=== PATIENT | female | born 1960 | race Caucasian/White ===

== ENCOUNTER → 2017-08-09 | Outpatient (CLI) | payer MEDICAID ==
[2017-08-09 10:19] LABS: Basophils % (A) 0 %; CH 27.9; Eosinophils # (A) 0.2 k/uL (0-0.7); Eosinophils % (A) 2 %; HCT 39.3 % (34.0-46.0); HDW 2.71; HGB 12.6 gm/dL (11.4-16.0); Luc # (Auto) 0.23; Luc % (Auto) 2; Lymphocytes # (A) 2.7 k/uL (1.0-4.8); Lymphocytes % (A) 23 %; MCHC 32.1 g/dL (31.0-37.0); MCV 87.3 fL (80.0-100.0); Monocytes # (A) 0.6 k/uL (0-1.0); Monocytes % (A) 5 %; Neutrophils # (A) 7.7 k/uL (1.3-7.7); Neutrophils % (A) 68 %; RDW 13.7 % (11.5-15.5); WBC 11.4 k/uL (3.8-10.6); WBC (Perox) 11.75
[2017-08-09 13:28] LABS: ALT 38 U/L (9-52); AST 21 U/L (14-36); Alkaline Phosphatase 122 U/L (38-126); Anion Gap 12 mmol/L; Blood Urea Nitrogen 10 mg/dL (7-17); Calcium 9.4 mg/dL (8.4-10.2); Carbon Dioxide 24 mmol/L (22-30); Chloride 102 mmol/L (98-107); Cholesterol 184 mg/dL (<200); Glucose 119 mg/dL (74-99); HDL Cholesterol 49 mg/dL (40-60); Non-African American GFR(MDRD) >60 (>60 ml/min/1.73 sqM); Potassium 4.2 mmol/L (3.5-5.1); Sodium 138 mmol/L (137-145); Total Bilirubin 0.4 mg/dL (0.2-1.3); Total Protein 7.1 g/dL (6.3-8.2)
[2017-08-09 13:31] LABS: Rheumatoid Factor, Qnt <9 IU/mL (<12)
== END | disposition home or self-care (01) ==
LOC: LABWHC1 09:52
PROVIDERS: ATTEND Internal Medicine
DX: Z00.00 Encounter for general adult medical examination without abnormal findings (principal); E78.5 Hyperlipidemia, unspecified
CPT/HCPCS: 36415; 80053; 80061; 84439; 84443; 85025; 86431

== ENCOUNTER → 2017-08-19 | Outpatient (CLI) | payer MEDICAID ==
--- NOTE | 2017-08-19 15:57 | US ---
EXAMINATION TYPE: US thyroid st tissue head/neck DATE OF EXAM: 08/19/2017 COMPARISON: US 08/13 CLINICAL HISTORY: E04.1 NODULE. follow up on known nodules, prior biopsy GLAND SIZE: Right Lobe: 4.9 x 1.5 x 2.0 cm. Previous measurement 5.1 x 1.6 x 1.8 cm. Overall Parenchyma: homogenous Left Lobe: 4.9 x 1.9 x 1.6 cm. Previous measurement 5.5 x 1.6 x 1.7 cm. Overall Parenchyma: diffusely heterogeneous Isthmus Thickness: 0.6 cm. Previous measurement 0.5 cm. NODULES RIGHT: # of nodules measured on right: 2 1. 0.6 x 0.3 x 0.5 cm hypoechoic solid appearing nodule at the lower pole with poorly defined margin s. This nodule is wider than tall and shows intranodular vascularity. Prior size: 0.5 x 0.3 x 0.4 cm 2. 0.4 cm cystic nodule at the mid to upper pole with well-defined margins. This nodule is wider th an tall and shows no intranodular vascularity. Prior size: not seen on prior scan. LEFT: # of nodules measured on left: 1 1. 0.6 X 0.8 x 0.8 cm heterogeneous mixed nodule at the posterior pole with mid to lower margins. This nodule is taller than wide and shows no intranodular vascularity. Prior size: 0.8 x 0.8 x 1.2 cm 2. Left lobe has a diffusely heterogeneous echo pattern. ISTHMUS: # of nodules measured in the isthmus: 0 Bilateral neck scanned, no evidence of lymphadenopathy. IMPRESSION: 1. Stable multinodular thyroid 2. Subcentimeter nodule inferior left lobe thyroid warrants monitoring.
--- NOTE | 2017-08-19 16:06 | US ---
EXAMINATION TYPE: US abdomen complete DATE OF EXAM: 08/19/2017 COMPARISON: NONE CLINICAL HISTORY: R10.84 ABD PAIN. Epigastric pain, worse after eating EXAM MEASUREMENTS: Liver Length: 19.6 cm Gallbladder Wall: 0.2 cm CBD: 0.5 cm Spleen: 11.6 cm Right Kidney: 10.2 x 4.6 x 5.1 cm Left Kidney: 10.9 x 5.7 x 7.0 cm Pancreas: tail gassed out otherwise wnl Liver: hepatomegaly, attenuating Gallbladder: wnl Evidence for sonographic Bingham's sign: no CBD: wnl Spleen: wnl Right Kidney: wnl Left Kidney: wnl Upper IVC: wnl Abd Aorta: wnl IMPRESSION: 1. Visualized portions of the abdominal ultrasound or unremarkable. Bowel gas limits portions of the evaluation 2. Mild to moderate fatty infiltration liver. Thyromegaly is present measuring 19.6 cm.
--- NOTE | 2017-08-20 09:37 | MM ---
Reason for exam: screening (asymptomatic). Last mammogram was performed 2 years and 7 months ago. History: Patient is postmenopausal. Took progesterone for 5 years beginning at age 27. Took unspecified hormones for 4 years beginning at age 27. Physical Findings: A clinical breast exam by your physician is recommended on an annual basis and results should be correlated with mammographic findings. MG 3D Screening Mammo W/Cad Bilateral CC and MLO view(s) were taken. CV view(s) were taken of the left breast. Prior study comparison: January 17, 2015, bilateral MG screening mammo w CAD. October 20, 2013, bilateral digital screening mammo w/CAD. There are scattered fibroglandular densities. Stable asymmetric density anterior central left breast. No significant changes when compared with prior studies. ASSESSMENT: Negative, BI-RAD 1 RECOMMENDATION: Routine screening mammogram of both breasts in 1 year.
== END | disposition home or self-care (01) ==
LOC: RADUSWWP 08:43
PROVIDERS: ATTEND Internal Medicine
DX: Z12.31 Encounter for screening mammogram for malignant neoplasm of breast (principal); K76.0 Fatty (change of) liver, not elsewhere classified; E04.2 Nontoxic multinodular goiter
CPT/HCPCS: 77063; 76700; 76536; G0202

== ENCOUNTER → 2019-05-23 | Outpatient (CLI) | payer MEDICAID ==
--- NOTE | 2019-05-23 09:54 | XR ---
EXAMINATION TYPE: XR foot complete LT DATE OF EXAM: 05/23/2019 COMPARISON: NONE HISTORY: 58-year-old female left foot pain after rolling injury TECHNIQUE: 3 views FINDINGS: There is a transverse fracture through the midshaft of the fifth proximal phalanx with minimal, 1 mm of offset. Adjacent soft tissue swelling. No additional acute fracture or dislocation is seen. There is mild hallux valgus deformity with bunion formation. Mild degenerative change at the first MT P joint. More moderate degenerative change at the first TMT joint with adjacent 3 mm fragmented spur versus loose body. Tiny type I accessory navicular. Additional degenerative spurring anteriorly and m edially at the tibiotalar joint. Plantar calcaneal spur. IMPRESSION: Transverse fracture through the mid shaft of the fifth proximal phalanx with minimal, 1 mm of offset. Associated soft tissue swelling.
== END | disposition home or self-care (01) ==
LOC: RADXRMAIN 08:51
PROVIDERS: ATTEND Radiology Diagnostic Radiology
DX: S92.512A Displaced fracture of proximal phalanx of left lesser toe(s), initial encounter for closed fracture (principal); M79.89 Other specified soft tissue disorders

== ENCOUNTER → 2020-01-15 | Outpatient (CLI) | payer MEDICAID | END | disposition home or self-care (01) | DX: Z00.00 Encounter for general adult medical examination without abnormal findings (principal) | CPT/HCPCS: 36415; 80053; 80061; 84439; 84443; 84550; 85025; 86431 ==

== ENCOUNTER → 2020-06-19 | Outpatient (CLI) | payer MEDICAID | END | disposition home or self-care (01) | LOC: LABWHC1 13:31 | PROVIDERS: ATTEND Internal Medicine | DX: Z20.828 Contact with and (suspected) exposure to other viral communicable diseases (principal) | CPT/HCPCS: U0003; C9803 ==

== ENCOUNTER → 2020-08-23 | Outpatient (CLI) | payer MEDICAID ==
--- NOTE | 2020-08-26 12:03 | MM ---
Reason for exam: screening (asymptomatic). Last mammogram was performed 3 years ago. History: Patient is postmenopausal. Took progesterone for 5 years beginning at age 27. Took unspecified hormones for 4 years beginning at age 27. Physical Findings: A clinical breast exam by your physician is recommended on an annual basis and results should be correlated with mammographic findings. MG 3D Screening Mammo W/Cad Bilateral CC and MLO view(s) were taken. Prior study comparison: August 19, 2017, bilateral MG 3d screening mammo w/cad. January 17, 2015, bilateral MG screening mammo w CAD. There are scattered fibroglandular densities. There is chronic nodularity in the left breast. No significant changes when compared with prior studies. ASSESSMENT: Negative, BI-RAD 1 RECOMMENDATION: Routine screening mammogram of both breasts in 1 year.
== END | disposition home or self-care (01) ==
LOC: RADMAMWWP 10:46
PROVIDERS: ATTEND Internal Medicine
DX: Z12.31 Encounter for screening mammogram for malignant neoplasm of breast (principal)
CPT/HCPCS: 77063; 77067

== ENCOUNTER 2020-09-23 06:55 | Emergency (ER) | payer MEDICAID ==
[2020-09-23 07:03] VITALS: PULSE 81; TEMP 98.8
[2020-09-23] MEDS ORDERED: GABAPENTIN 300 MG CAP PO STA (07:10)
[2020-09-23] MEDS ORDERED: KETOROLAC 15 MG/ML 1 ML VIAL IM STA (07:11)
[2020-09-23] MEDS ORDERED: HYDROmorphone 0.5 MG/0.5 ML SYRINGE IM STA (07:19)
--- NOTE | 2020-09-23 07:31 | ED ---
Neck Injury/Pain HPI - General Chief Complaint: Neck Pain/Injury Stated Complaint: Neck/Arm Pain Time Seen by Provider: 09/23/20 07:04 Mode of arrival: ambulatory Limitations: no limitations - History of Present Illness Initial Comments: 59-year-old feel presenting today for chief complaint of burning right arm pain. pt states that she has bulging discs and a bad neck. she states she has been struggling wtih this for quite some time and sees Dr. Marly Don. She states she had an MRI in July. Admits to chronic mild weakness of the right arm and sensation deficits of the pink side of hand. States feels different than rest of extremity. These are not new symptoms. Pt states that the weakness and sensation has not changed but over the weekend the burning and pain increased and keeping her arm elevated is the only position that is comfortable. pt tried to go to work today and could not because of the pain and thus presented to the ER. Patient has no additional complaints. Denies chest pain, SOB, nausea, vomiting, jaw pain. - Related Data Home Medications Medication Instructions Recorded Confirmed Fluticasone/Salmeterol [Advair 1 puff INHALATION RT-DAILY 11/27/14 09/23/20 250-50 Diskus] Montelukast [Singulair] 10 mg PO HS 11/27/14 09/23/20 Acetaminophen Tab [Tylenol Tab] 500 - 1,000 mg PO Q6H PRN 02/19/16 09/23/20 DULoxetine HCL [Cymbalta] 60 mg PO HS 08/24/17 09/23/20 Losartan/Hydrochlorothiazide 2 tab PO DAILY 10/06/17 09/23/20 [Losartan-Hctz 50-12.5 mg Tab] ALPRAZolam [Xanax] 0.5 mg PO DAILY PRN 09/23/20 09/23/20 Albuterol Inhaler [Ventolin Hfa 2 puff INHALATION RT-Q4H PRN 09/23/20 09/23/20 Inhaler] Albuterol Nebulized [Ventolin 2.5 mg INHALATION RT-TID 09/23/20 09/23/20 Nebulized] Cyclobenzaprine [Flexeril] 10 mg PO BID PRN 09/23/20 09/23/20 HYDROcodone/APAP 7.5-325MG [[place] 1 tab PO BID PRN 09/23/20 09/23/20 7.5-325] Previous Rx's Medication Instructions Recorded predniSONE 50 mg PO DAILY 5 Days #5 tablet 09/23/20 Allergies Allergy/AdvReac Type Severity Reaction Status Date / Time adhesive Allergy blisters Verified 09/23/20 08:33 codeine Allergy throat Verified 09/23/20 08:33 swelling and redness erythromycin base Allergy Unknown Verified 09/23/20 08:33 Childhood latex Allergy red, Verified 09/23/20 08:33 irritated skin tetracycline Allergy Unknown Verified 09/23/20 08:33 Childhood Review of Systems ROS Statement: Those systems with pertinent positive or pertinent negative responses have been documented in the HPI. ROS Other: All systems not noted in ROS Statement are negative. Past Medical History Past Medical History: Asthma, Fibromyalgia, Osteoarthritis (OA), Skin Disorder Additional Past Medical History / Comment(s): "borderline BP problem", IBS, psoriasis, thyroid nodule, History of Any Multi-Drug Resistant Organisms: None Reported Past Surgical History: Section, Joint Replacement, Orthopedic Surgery Additional Past Surgical History / Comment(s): chaim knee replacement, mass removed from rt shoulder, left TMJ surgery, surgery left index finger, Past Anesthesia/Blood Transfusion Reactions: Postoperative Nausea & Vomiting (PONV) Additional Past Anesthesia/Blood Transfusion Reaction / Comment(s): "gagging for 40 minutes post op" Past Psychological History: Anxiety Smoking Status: Never smoker Past Alcohol Use History: Rare Past Drug Use History: None Reported - Past Family History Mother Family Medical History: No Reported History Father Family Medical History: COPD General Exam - General Exam Comments Initial Comments: General: The patient is awake and alert, in no distress Eye: +3 mm pupils are equal, round and reactive to light, extra-ocular movements are intact. No nystagmus. There is normal conjunctiva bilaterally. No signs of icterus. Ears, nose, mouth and throat: There are moist mucous membranes and no oral lesions. Neck: The neck is supple, there is no tenderness or JVD. No midline neck pain. + spurlings. Cardiovascular: There is a regular rate and rhythm. No murmur, rub or gallop is appreciated. Respiratory: Lungs are clear to auscultation, respirations are non-labored, breath sounds are equal. No wheezes, stridor, rales, or rhonchi. Gastrointestinal: Soft, non-distended, non-tender abdomen without masses or organomegaly noted. There is no rebound or guarding present. Musculoskeletal: Normal ROM, no tenderness. Strength 5/5 of the UE b/l. Sensation intact of the UE b/l slightly less however on ulnar aspect of the right hand. Radial pulses equal bilaterally 2+. Neurological: A&O x 3. CN II-XII intact grossly, There are no obvious motor or sensory deficits. Coordination appears grossly intact. Speech is normal. Skin: Skin is warm and dry and no rashes or lesions are noted. Psychiatric: Cooperative, appropriate mood & affect, normal judgment. Limitations: no limitations Course Vital Signs 09/23/20 09/23/20 06:56 09:01 Temperature 98.8 F Pulse Rate 81 81 Respiratory 20 18 Rate Blood Pressure 216/81 167/81 O2 Sat by Pulse 96 95 Oximetry Medical Decision Making - Medical Decision Making 59yo female presenting for cc of right arm pain. hx of foraminal stenosis/cervical disc herniations. Patient has what appears to be most consistent wtih radicular pain states burning pain down arm from neck. same characteristics as chronic pain just intensified. Patient neurologist consulted, I spoke with Dr. Painter who recommend initiating solumedrol 500mg IV daily x 3 days, he statse that she can get initial infusion in the ER and the others can be given in office the next 2 days. He states he will attempt to move up epidural appointment. Patient agreeable to this care plan and states she is going to his office directly after the ER to schedule addition solumedrol infusions. Patient pain did decrease, appears mroe comfortable, BP improved. Discussed case wtih Dr. Enamorado who is agreeable to care plan and discharge. Prior to patient being discharge Flore[facility] QUINONEZ called, stating patient will not be able to get additional infusions and to discharge pateint on 50mg PO prednisone for 5 days and they will see the patient in office. Disposition Clinical Impression: Right arm pain, Radiculopathy Disposition: HOME SELF-CARE Condition: Good Instructions (If sedation given, give patient instructions): Cervical Radiculopathy (ED) Additional Instructions: Please use medication as discussed. Please follow-up with Dr. Painter as discussed. Please return to emergency room if the symptoms increase or worsen or for any other concerns. Prescriptions: predniSONE 50 mg PO DAILY 5 Days #5 tablet Is patient prescribed a controlled substance at d/c from ED?: No Referrals: Abrahan Marie MD [Primary Care Provider] - 1-2 days Time of Disposition: 09:33
[2020-09-23] MEDS ORDERED: predniSONE 50 MG TAB PO STA (08:16)
[2020-09-23] MEDS ORDERED: HYDROmorphone 0.5 MG/0.5 ML SYRINGE IVP STA (08:56)
[2020-09-23 09:03] VITALS: BP 167/81; RESP 18
== END 2020-09-23 10:13 | disposition home or self-care (01) ==
LOC: EC 06:55
DX: M54.12 Radiculopathy, cervical region (principal); F41.9 Anxiety disorder, unspecified; J45.909 Unspecified asthma, uncomplicated; M79.7 Fibromyalgia; Z79.51 Long term (current) use of inhaled steroids; Z79.899 Other long term (current) drug therapy; Z96.653 Presence of artificial knee joint, bilateral; Z88.1 Allergy status to other antibiotic agents; Z88.5 Allergy status to narcotic agent; Z91.040 Latex allergy status; Z91.048 Other nonmedicinal substance allergy status
CPT/HCPCS: 99283; 96365; 96375; 96372 ×2; J2930; J1885; J1170

== ENCOUNTER 2021-09-01 13:53 | Emergency (ER) | payer MEDICAID ==
[2021-09-01 15:13] VITALS: BP 158/90; PULSE 101; RESP 18; TEMP 97.6
[2021-09-01] MEDS ORDERED: HYDROmorphone 0.5 MG/0.5 ML SYRINGE IM STA (16:43)
--- NOTE | 2021-09-01 16:43 | ED ---
Back Pain HPI - General Chief Complaint: Back Pain/Injury Stated Complaint: Back Pain, I.H.S. Time Seen by Provider: 09/01/21 16:17 Source: patient, RN notes reviewed, old records reviewed Mode of arrival: ambulatory Limitations: no limitations - History of Present Illness Initial Comments: Patient is a 60-year-old female presenting to the emergency department after injuring her back at work today. Patient works here at the hospital, she was helping to lift a patient of that, this patient is obese, there was other people helping her lower patient fell forward into her and patient tried to brace herself with her back and her legs. She did not fall down. She does have history of chronic low back pain which has been well managed at home. Patient states she is having pain in the left side of her back and also shooting down the back of her leg. She has history of sciatica as well and this feels exactly like that. Patient did take a muscle relaxer and [place] prior to coming to the ER, she states she does not feel like it worked. She denies any numbness and tingling, no bowel or bladder incontinence. She states she just really wants to go home and rest. Patient has no further complaints. - Related Data Home Medications Medication Instructions Recorded Confirmed Fluticasone/Salmeterol [Advair 1 puff INHALATION RT-DAILY 11/27/14 09/23/20 250-50 Diskus] Montelukast [Singulair] 10 mg PO HS 11/27/14 09/23/20 Acetaminophen Tab [Tylenol Tab] 500 - 1,000 mg PO Q6H PRN 02/19/16 09/23/20 DULoxetine HCL [Cymbalta] 60 mg PO HS 08/24/17 09/23/20 Losartan/Hydrochlorothiazide 2 tab PO DAILY 10/06/17 09/23/20 [Losartan-Hctz 50-12.5 mg Tab] ALPRAZolam [Xanax] 0.5 mg PO DAILY PRN 09/23/20 09/23/20 Albuterol Inhaler [Ventolin Hfa 2 puff INHALATION RT-Q4H PRN 09/23/20 09/23/20 Inhaler] Albuterol Nebulized [Ventolin 2.5 mg INHALATION RT-TID 09/23/20 09/23/20 Nebulized] Cyclobenzaprine [Flexeril] 10 mg PO BID PRN 09/23/20 09/23/20 HYDROcodone/APAP 7.5-325MG [[place] 1 tab PO BID PRN 09/23/20 09/23/20 7.5-325] Previous Rx's Medication Instructions Recorded Gabapentin 300 mg PO BID 3 Days #6 cap 09/23/20 predniSONE 50 mg PO DAILY 5 Days #5 tablet 09/23/20 Gabapentin 300 mg PO BID 4 Days #8 cap 09/27/20 predniSONE 10 mg PO DIRECTED 9 Days #18 tab 09/27/20 Allergies Allergy/AdvReac Type Severity Reaction Status Date / Time adhesive Allergy blisters Verified 09/01/21 15:13 codeine Allergy throat Verified 09/01/21 15:13 swelling and redness erythromycin base Allergy Unknown Verified 09/01/21 15:13 Childhood latex Allergy red, Verified 09/01/21 15:13 irritated skin tetracycline Allergy Unknown Verified 09/01/21 15:13 Childhood Review of Systems ROS Statement: Those systems with pertinent positive or pertinent negative responses have been documented in the HPI. ROS Other: All systems not noted in ROS Statement are negative. Past Medical History Past Medical History: Asthma, Diabetes Mellitus, Fibromyalgia, Osteoarthritis (OA), Skin Disorder Additional Past Medical History / Comment(s): "borderline BP problem", IBS, psoriasis, thyroid nodule, History of Any Multi-Drug Resistant Organisms: None Reported Past Surgical History: Section, Joint Replacement, Orthopedic Surgery Additional Past Surgical History / Comment(s): chaim knee replacement, mass removed from rt shoulder, left TMJ surgery, surgery left index finger, Past Anesthesia/Blood Transfusion Reactions: Postoperative Nausea & Vomiting (PONV) Additional Past Anesthesia/Blood Transfusion Reaction / Comment(s): "gagging for 40 minutes post op" Past Psychological History: Anxiety Smoking Status: Never smoker Past Alcohol Use History: Rare Past Drug Use History: None Reported - Past Family History Mother Family Medical History: No Reported History Father Family Medical History: COPD General Exam - General Exam Comments Initial Comments: GENERAL: Patient is well-developed and well-nourished. Patient is nontoxic and in mild distress. HEAD: Atraumatic, normocephalic. EYES: Pupils equal round and reactive to light, extraocular movements intact, sclera anicteric, conjunctiva are normal. Eyelids were unremarkable. ENT: Oropharynx clear without exudates. Moist mucous membranes. NECK: Normal range of motion, supple without lymphadenopathy or JVD. LUNGS: Unlabored respirations. Breath sounds clear to auscultation bilaterally and equal. No wheezes rales or rhonchi. HEART: Regular rate and rhythm without murmurs, rubs or gallops. MUSCULOSKELETAL: Patient has pain in the left low back, left sciatica region. Normal extremities with adequate strength and normal range of motion, no pitting or edema. No clubbing or cyanosis. NEUROLOGICAL: Patient is alert and oriented x 3. SKIN: Warm, Dry, normal turgor, no rashes or lesions noted. Limitations: no limitations Course Vital Signs 09/01/21 15:08 Temperature 97.6 F Pulse Rate 101 H Respiratory 18 Rate Blood Pressure 158/90 O2 Sat by Pulse 98 Oximetry Medical Decision Making - Medical Decision Making Patient is a 60-year-old female here with an injury to her low back after a patient fell into her. She is experiencing left low back and left sciatica symptoms. She has had this in the past and it feels similar. She has no alarming symptoms and exam. Patient be given any pain medicine here today and is requesting to go home and rest. She will use hot packs to the area, gentle massage. She will follow back up with her doctor. She is agreeable to this plan of care and she is stable for discharge. Disposition Clinical Impression: Strain of lumbar region, Sciatica Disposition: HOME SELF-CARE Condition: Stable Instructions (If sedation given, give patient instructions): Sciatica (ED) Additional Instructions: Please return to the Emergency Department if symptoms worsen or any other concerns. Continue with your already prescribed medications. Use heat and/or ice to the area, gentle stretching and massage. Follow-up with your doctor as needed. Is patient prescribed a controlled substance at d/c from ED?: No Referrals: Krista Gonsalez MD [Primary Care Provider] - 1-2 days Time of Disposition: 16:42
== END 2021-09-01 16:52 | disposition home or self-care (01) ==
LOC: EC 13:53
DX: S39.012A Strain of muscle, fascia and tendon of lower back, initial encounter (principal); M54.42 Lumbago with sciatica, left side; E11.9 Type 2 diabetes mellitus without complications; J45.909 Unspecified asthma, uncomplicated; M79.7 Fibromyalgia; Z91.09 Other allergy status, other than to drugs and biological substances; Z88.5 Allergy status to narcotic agent; Z88.1 Allergy status to other antibiotic agents; Z91.040 Latex allergy status; Z79.51 Long term (current) use of inhaled steroids; Z79.899 Other long term (current) drug therapy
CPT/HCPCS: 99283; 96372; J1170

== ENCOUNTER → 2021-09-22 | Outpatient (CLI) | payer MEDICAID, OTHER | END | disposition home or self-care (01) | LOC: LABWHC1 09:45 | PROVIDERS: ATTEND Emergency Medicine | DX: Z20.822 Contact with and (suspected) exposure to COVID-19 (principal) | CPT/HCPCS: 87635 ==

== ENCOUNTER → 2021-09-23 | Outpatient (CLI) | payer MEDICAID, OTHER | END | disposition home or self-care (01) | LOC: LABWHC1 09:42 | PROVIDERS: ATTEND Emergency Medicine | DX: Z20.822 Contact with and (suspected) exposure to COVID-19 (principal) | CPT/HCPCS: 87635 ==

== ENCOUNTER → 2022-02-02 | Outpatient (CLI) | payer MEDICAID ==
--- NOTE | 2022-02-02 14:03 | US ---
EXAMINATION TYPE: US thyroid st tissue head/neck DATE OF EXAM: 02/02/2022 COMPARISON: US dated 08/19/2017 and priors. CLINICAL HISTORY: E04.2 NONTOXIC MULTINODULAR GOITER. GLAND SIZE: Right Lobe: 5.3 x 1.7 x 1.8 cm Overall Parenchyma: homogenous Left Lobe: 5.9 x 1.6 x 2.1 cm Overall Parenchyma: heterogeneous Isthmus Thickness: 0.5 cm NODULES RIGHT: # of nodules measured on right: 1 1. 0.5 X 0.4 x 0.4 cm, mid mid, solid or almost completely solid, hypoechoic nodule, which is wider than tall, with smooth margins, without echogenic foci. Prior size: 0.6 x 0.3 x 0.5 cm LEFT: # of nodules measured on left: 1 1. 0.9 X 0.7 x 0.8 cm, lower mid, solid or almost completely solid, isoechoic nodule, which is wide r than tall, with smooth margins, without echogenic foci. Prior size: not measured on prior, is very vague. There is a cluster of colloid cysts noted midpole. ISTHMUS: # of nodules measured in the isthmus: 0 Bilateral neck scanned, no evidence of lymphadenopathy. IMPRESSION: Mildly suspicious, dominant lesion left lobe is TR 3, follow-up in one year 2017 ACR TI-RADS LEVEL: TR 3 *Highest TI-RADS level nodule reported
== END | disposition home or self-care (01) ==
LOC: RADUSWWP 12:28
PROVIDERS: ATTEND Family Medicine
DX: E04.2 Nontoxic multinodular goiter (principal)
CPT/HCPCS: 76536

== ENCOUNTER → 2022-03-18 | Outpatient (CLI) | payer SELFPAY | END | disposition home or self-care (01) | LOC: RADXRMAIN 14:33 | PROVIDERS: ATTEND Orthopaedic Surgery | DX: Z53.9 Procedure and treatment not carried out, unspecified reason (principal) ==

== ENCOUNTER → 2022-04-09 | Outpatient (CLI) | payer MEDICAID ==
--- NOTE | 2022-04-10 03:35 | MR ---
EXAMINATION TYPE: MR cervical spine wo con DATE OF EXAM: 04/09/2022 COMPARISON: 07/10/2021 HISTORY: Rt arm pain that travels to the Rt side of head with numbness in Rt arm and fingers Multiplanar multiecho imaging of the cervical spine without contrast. FINDINGS: The cervical vertebra show mild straightening. There is some C6-7 disc space narrowing. There is post erior small disc bulges at C5-6 and C6-7. There is developmentally adequate spinal canal and no spina l stenosis. Spinal canal measures 8.2 mm at C6-7 which is the narrowest point. Cervical spinal cord h as normal signal pattern. No edema. Brainstem is intact. There is no cervical paraspinal mass. No com pression fracture. IMPRESSION: Mild degenerative disc changes at C5-6 and C6-7. No spinal stenosis. Mild posterior disc bulging. No significant change compared to old exam.
== END | disposition home or self-care (01) ==
LOC: RADMRIMAIN 14:29
PROVIDERS: ATTEND Orthopaedic Surgery
DX: M50.322 Other cervical disc degeneration at C5-C6 level (principal)
CPT/HCPCS: 72141

== ENCOUNTER → 2023-04-30 | Outpatient (CLI) | payer MEDICAID ==
--- NOTE | 2023-04-30 14:31 | MM ---
Reason for Exam: Screening (asymptomatic). Last mammogram was performed 2 year(s) and 8 month(s) ago. Patient History: Menarche at age 17. First Full-Term at age 31. Late child-bearing (after 31). Postmenopausal. Progesterone for 5 years from age 27 until age 32. Unspecified Hormone for 4 years from age 27 until age 31. Risk Values: Shelly 5 year model risk: 1.9%. NCI Lifetime model risk: 8.9%. Prior Study Comparison: 01/17/2015 Bilateral Screening Mammogram, [facility]. 08/19/2017 Bilateral Screening Mammogram, [facility]. 08/23/2020 Bilateral Screening Mammogram, [facility]. Tissue Density: There are scattered fibroglandular densities. Findings: Analyzed By CAD. There is occasional tiny benign-appearing round calcification bilaterally redemonstrated. There is no suspicious new group of microcalcifications or new suspicious mass in either breast. Overall Assessment: Benign, BI-RAD 2 Management: Screening Mammogram of both breasts in 1 year. . Patient should continue monthly self-breast exams. A clinical breast exam by your physician is recommended on an annual basis. This exam should not preclude additional follow-up of suspicious palpable abnormalities. Note on Shelly scores and lifetime risk: 1. A Shelly score greater than 3% is considered moderate risk. If this is the case, consider specialist referral to assess eligibility for a risk reducing agent. 2. If overall lifetime risk for the development of breast cancer is 20% or higher, the patient may qualify for future screening with alternating mammogram and breast MRI. Electronically signed and approved by: Gallito Shrestha M.D.
== END | disposition home or self-care (01) ==
LOC: RADMAMWWP 09:00
PROVIDERS: ATTEND Family Medicine
DX: Z12.31 Encounter for screening mammogram for malignant neoplasm of breast (principal); Z78.0 Asymptomatic menopausal state
CPT/HCPCS: 77063; 77067

== ENCOUNTER → 2023-09-21 | Outpatient (CLI) | payer MEDICAID | END | disposition home or self-care (01) | LOC: LABWHC1 08:24 | PROVIDERS: ATTEND Family Medicine | DX: I10 Essential (primary) hypertension (principal); E11.21 Type 2 diabetes mellitus with diabetic nephropathy; D50.9 Iron deficiency anemia, unspecified | CPT/HCPCS: 36415; 83036 ==

== ENCOUNTER 2024-03-06 08:24 | Emergency (ER) | payer MEDICAID ==
[2024-03-06] MEDS: SODIUM CHLORIDE 0.9% 1,000 ML IV STA (08:51)
[2024-03-06] MEDS: ADENOSINE 3 MG/ML 2 ML VIAL IVP STA (08:53)
[2024-03-06 09:01] VITALS: TEMP 98.1
[2024-03-06 09:20] LABS: Basophils # (A) 0.1 k/uL (0-0.2); Basophils % (A) 0 %; Eosinophils # (A) 0.3 k/uL (0-0.7); Eosinophils % (A) 2 %; HCT 37.3 % (34.0-46.0); HGB 11.7 gm/dL (11.4-16.0); Hypochromasia Slight; Lymphocytes # (A) 2.6 k/uL (1.0-4.8); Lymphocytes % (A) 22 %; MCH 26.3 pg (25.0-35.0); MCHC 31.5 g/dL (31.0-37.0); MCV 83.6 fL (80.0-100.0); Monocytes # (A) 0.8 k/uL (0-1.0); Monocytes % (A) 6 %; Neutrophils # (A) 8.1 k/uL (1.3-7.7); Neutrophils % (A) 67 %; Platelet Count 425 k/uL (150-450); RBC 4.46 m/uL (3.80-5.40); RDW 14.2 % (11.5-15.5); WBC 12.1 k/uL (3.8-10.6)
[2024-03-06] MEDS: ALPRAZolam 0.25 MG TAB PO STA (09:22)
[2024-03-06 09:29] LABS: INR 0.9 (<1.2); Partial Thromboplastin Time 25.3 sec (22.0-30.0); Prothrombin Time 9.9 sec (10.0-12.5)
--- NOTE | 2024-03-06 09:35 | XR ---
EXAMINATION TYPE: XR chest 2V DATE OF EXAM: 03/06/2024 COMPARISON: NONE TECHNIQUE: PA and lateral views submitted. HISTORY: Dysrhythmia FINDINGS: The lungs are clear and there is no pneumothorax, pleural effusion, or focal pneumonia. Heart size normal and no overt failure. Osseous structures demonstrate hypertrophic and degenerative changes of the spine. IMPRESSION: 1. No acute process.
[2024-03-06 09:37] LABS: ALT 20 U/L (4-34); AST 23 U/L (14-36); African American GFR (CKD) >90 (>60 ml/min/1.73 sqM); Albumin 4.5 g/dL (3.5-5.0); Alkaline Phosphatase 94 U/L (38-126); Anion Gap 14 mmol/L; Blood Urea Nitrogen 17 mg/dL (7-17); Calcium 9.4 mg/dL (8.4-10.2); Carbon Dioxide 19 mmol/L (22-30); Chloride 103 mmol/L (98-107); Glucose 164 mg/dL (74-99); Magnesium 1.5 mg/dL (1.6-2.3); Non-African American GFR(CKD) 88 (>60 ml/min/1.73 sqM); Potassium 4.3 mmol/L (3.5-5.1); Sodium 136 mmol/L (137-145); Total Bilirubin 0.4 mg/dL (0.2-1.3); Total Protein 7.4 g/dL (6.3-8.2)
[2024-03-06] MEDS: MAGNESIUM SULFATE-D5W PMX 1 GM in DEXTROSE/WATER 1 100ML.BAG IVPB ONE (10:31)
--- NOTE | 2024-03-06 10:40 | ED ---
General Adult HPI - General Chief complaint: Arrhythmia/Palpitations Stated complaint: Tachy Time Seen by Provider: 03/06/24 08:40 Source: patient, RN notes reviewed, old records reviewed Mode of arrival: ambulatory Limitations: no limitations - History of Present Illness Initial comments: Patient is a 63-year-old female presents emergency department complaining of palpitations. She has a history of SVT. Is concerned she may be in SVT. Has never required ER visit for her SVT as it usually subsides on its own however symptoms have been ongoing for over an hour without any resolution. States she is under more stress lately. Denies any chest pain. Denies any shortness of breath. Endorses palpitations only at this time. Presents for further evaluation at this time. Does not follow-up with a fruit farmer. - Related Data Home Medications Medication Instructions Recorded Confirmed Montelukast [Singulair] 10 mg PO HS 11/27/14 03/06/24 DULoxetine HCL [Cymbalta] 60 mg PO BID 08/24/17 03/06/24 Albuterol Inhaler [Ventolin Hfa 2 puff INHALATION RT-Q4H PRN 09/23/20 03/06/24 Inhaler] HYDROcodone/APAP 7.5-325MG [[place] 0.5 - 1 tab PO TID PRN 09/23/20 03/06/24 7.5-325] Ferrous Sulfate Oral Elixir 300 mg PO DAILY 03/06/24 03/06/24 [Feosol Liquid] Fluticasone Propion/Salmeterol 1 puff INHALATION RT-BID 03/06/24 03/06/24 [[place]ela 250-50 Inhub] Gabapentin 300 mg PO TID PRN 03/06/24 03/06/24 Ibuprofen [Motrin Ib] 200 - 600 mg PO Q6H PRN 03/06/24 03/06/24 Losartan/Hydrochlorothiazide 1 tab PO DAILY 03/06/24 03/06/24 [Hyzaar 100-25 Tablet] Multivitamins, Thera [Multivitamin 1 tab PO DAILY 03/06/24 03/06/24 (formulary)] Naproxen Sodium [Aleve] 220 - 440 mg PO BID PRN 03/06/24 03/06/24 Omeprazole [PriLOSEC] 20 mg PO HS 03/06/24 03/06/24 busPIRone HCL 5 mg PO BID 03/06/24 03/06/24 Allergies Allergy/AdvReac Type Severity Reaction Status Date / Time adhesive Allergy blisters Verified 03/06/24 09:44 codeine Allergy throat Verified 03/06/24 09:44 swelling and redness erythromycin base Allergy Unknown Verified 03/06/24 09:44 Childhood latex Allergy red, Verified 03/06/24 09:44 irritated skin Sulfa (Sulfonamide Allergy Unknown Verified 03/06/24 09:44 Antibiotics) Childhood tetracycline Allergy Unknown Verified 03/06/24 09:44 Childhood Review of Systems ROS Statement: Those systems with pertinent positive or pertinent negative responses have been documented in the HPI. Review of Systems: CONST: Denies fever EYES: Denies blurry vision ENT: Denies nasal congestion C/V: Endorses palpitations RESP: Denies shortness of breath GI: Denies abdominal pain : Denies dysuria SKIN: Denies rash. MSK: Denies joint pain. NEURO: Denies headache ROS Other: All systems not noted in ROS Statement are negative. Past Medical History Past Medical History: Asthma, Diabetes Mellitus, Fibromyalgia, Osteoarthritis (OA), Skin Disorder Additional Past Medical History / Comment(s): "borderline BP problem", IBS, psoriasis, thyroid nodule, History of Any Multi-Drug Resistant Organisms: None Reported Past Surgical History: Section, Joint Replacement, Orthopedic Surgery Additional Past Surgical History / Comment(s): chaim knee replacement, mass removed from rt shoulder, left TMJ surgery, surgery left index finger, Past Anesthesia/Blood Transfusion Reactions: Postoperative Nausea & Vomiting (P ONV) Additional Past Anesthesia/Blood Transfusion Reaction / Comment(s): "gagging for 40 minutes post op" Past Psychological History: Anxiety Smoking Status: Never smoker Past Alcohol Use History: Rare Past Drug Use History: None Reported - Past Family History Mother Family Medical History: No Reported History Father Family Medical History: COPD General Exam - General Exam Comments Initial Comments: General: Appears in no acute distress. HEAD: Normal with no signs of head trauma. EYES: PERRLA, EOMI ENT: Hearing grossly intact, normal oropharynx. RESPIRATORY: Clear breath sounds bilaterally. No wheezes, rales, or rhonchi. C/V: Regular rhythm, tachycardia. Appears to be SVT. S1 and S2 auscultated. P eripheral pulses 2+ intact throughout. ABD: Abd is soft, nontender, nondistended EXT: no obvious deformity SKIN: No rashes or lesions observed on exposed skin. NEURO: Alert and oriented x 4. No focal deficits. Limitations: no limitations Course Vital Signs 03/06/24 03/06/24 03/06/24 08:26 08:37 08:39 Temperature 98.1 F Pulse Rate 172 H 160 H Pulse Rate [ 170 H Plant Accountant ] Respiratory 22 20 Rate Blood Pressure 160/88 131/109 O2 Sat by Pulse 97 94 L Oximetry 03/06/24 03/06/24 03/06/24 08:48 08:53 10:32 Temperature Pulse Rate 160 H 105 H 90 Pulse Rate [ Plant Accountant ] Respiratory 20 18 18 Rate Blood Pressure 121/81 149/83 138/72 O2 Sat by Pulse 100 Oximetry 03/06/24 11:39 Temperature Pulse Rate 80 Pulse Rate [ Plant Accountant ] Respiratory 16 Rate Blood Pressure 148/75 O2 Sat by Pulse 96 Oximetry Medical Decision Making - Medical Decision Making Was pt. sent in by a medical professional or institution (, PA, AIRCRAFT MAINTENANCE ENGINEER, urgent care, hospital, or fci...) When possible be specific @ -No Did you speak to anyone other than the patient for history (EMS, parent, family, police, friend...)? What history was obtained from this source @ -No Did you review nursing and triage notes (agree or disagree)? Why? @ -I reviewed and agree with nursing and triage notes Were old charts reviewed (outside hosp., previous admission, EMS record, old EKG, old radiological studies, urgent care reports/EKG's, fci records)? Report findings @ -Old charts reviewed Differential Diagnosis (chest pain, altered mental status, abdominal pain women, abdominal pain men, vaginal bleeding, weakness, fever, dyspnea, syncope, headache, dizziness, GI bleed, back pain, seizure, CVA, palpatations, mental health, musculoskeletal)? @ -Differential Palpitations Ventricular arrhythmias, atrial arrhythmias, myocardial infarction, anemia, thyrotoxicosis, electrolyte imbalance, hypokalemia, pulmonary embolism, pulmonary disease, drugs, alcohol, anxiety, stress.... This is not meant to be an all-inclusive list. EKG interpreted by me (3pts min.). @ -As above X-rays interpreted by me (1pt min.). @ -X-ray reveals no obvious acute cardiopulmonary process CT interpreted by me (1pt min.). @ -None done U/S interpreted by me (1pt. min.). @ -None done What testing was considered but not performed or refused? (CT, X-rays, U/S, labs)? Why? @ -None What meds were considered but not given or refused? Why? @ -None Did you discuss the management of the patient with other professionals (professionals i.e. , PA, AIRCRAFT MAINTENANCE ENGINEER, lab, RT, psych nurse, addiction social worker, employment manager, teacher, air crew officer, piano case and bench assembler)? Give summary @ -No Was smoking cessation discussed for >3mins.? @ -No Was critical care preformed (if so, how long)? @ -Yes, 32 minutes. Were there social determinants of health that impacted care today? How? (Arpan elessness, low income, unemployed, alcoholism, drug addiction, transportation, low edu. Level, literacy, decrease access to med. care, nursing home, rehab)? @ -No Was there de-escalation of care discussed even if they declined (Discuss DNR or withdrawal of care, Hospice)? DNR status @ -No What co-morbidities impacted this encounter? (DM, HTN, Smoking, COPD, CAD, Cancer, CVA, ARF, Chemo, Hep., AIDS, mental health diagnosis, sleep apnea, morbid obesity)? @ -History of SVT Was patient admitted / discharged? Hospital course, mention meds given and route, prescriptions, significant lab abnormalities, going to OR and other pertinent info. @ -Based on patient's presentation and physical exam, presents emergency department with palpitations and tachycardia. EKG shows patient is in SVT. Multiple vagal maneuvers attempted and were unsuccessful with converting the patient to normal sinus rhythm. I did discuss with the patient at this time therefore we will obtain basic workup and administer adenosine. Patient was in agreement this plan. She was connected to the pads with ekg monitor, defib rillator, as well as IV fluids. Patient was administered 6 mg of IV adenosine. Patient converted to normal sinus rhythm. Vital signs otherwise within acceptable limits. Will continue with workup and she was in agreement this plan. Chest x-ray shows no obvious acute cardiopulmonary process. Patient's labs remarkable for mild hypomagnesemia of 1.5 which was replenished. After multiple hours of observation here in the department, patient will be discharged home at this time. She was in agreement this plan. Recommended follow-up with cardiology. Patient was in agreement this plan. Has not had any further episodes of SVT. Strict return precautions discussed. I instructed the patient to follow up with their PCP in the next 1-3 days. I explained that the patient should return to the emergency department if they experience any worsening symptoms. Strict return precautions were discussed with the patient. The patient expressed understanding of these instructions. I answered all questions that the patient had. The patient was discharged home in good condition with their prescriptions and follow up information. Undiagnosed new problem with uncertain prognosis? @ -No Drug Therapy requiring intensive monitoring for toxicity (Heparin, Nitro, Insulin, Cardizem)? @ -No Were any procedures done? @ -No Diagnosis/symptom? @ -Supraventricular tachycardia, hypomagnesemia Acute, or Chronic, or Acute on Chronic? @ -Acute on chronic Uncomplicated (without systemic symptoms) or Complicated (systemic symptoms)? @ -Complicated Side effects of treatment? @ -No Exacerbation, Progression, or Severe Exacerbation? @ -No Poses a threat to life or bodily function? How? (Chest pain, [place], [place], pneumonia, PE, COPD, DKA, ARF, appy, cholecystitis, CVA, Diverticulitis, Homicidal, Suicidal, threat to staff... and all critical care pts) @ -Unlikely - Lab Data Result diagrams: 03/06/24 08:50 03/06/24 08:50 Lab Results 03/06/24 03/06/24 03/06/24 Range/Units 08:50 08:50 08:50 WBC 12.1 H (3.8-10.6) k/uL RBC 4.46 (3.80-5.40) m/uL Hgb 11.7 (11.4-16.0) gm/dL Hct 37.3 (34.0-46.0) % MCV 83.6 (80.0-100.0) fL MCH 26.3 (25.0-35.0) pg MCHC 31.5 (31.0-37.0) g/dL RDW 14.2 (11.5-15.5) % Plt Count 425 (150-450) k/uL MPV 9.0 Neutrophils % 67 % Lymphocytes % 22 % Monocytes % 6 % Eosinophils % 2 % Basophils % 0 % Neutrophils # 8.1 H (1.3-7.7) k/uL Lymphocytes # 2.6 (1.0-4.8) k/uL Monocytes # 0.8 (0-1.0) k/uL Eosinophils # 0.3 (0-0.7) k/uL Basophils # 0.1 (0-0.2) k/uL Hypochromasia Slight PT 9.9 L (10.0-12.5) sec INR 0.9 (<1.2) APTT 25.3 (22.0-30.0) sec Sodium 136 L (137-145) mmol/L Potassium 4.3 (3.5-5.1) mmol/L Chloride 103 (98-107) mmol/L Carbon Dioxide 19 L (22-30) mmol/L Anion Gap 14 mmol/L BUN 17 (7-17) mg/dL Creatinine 0.74 (0.52-1.04) mg/dL Est GFR (CKD-EPI)AfAm >90 (>60 ml/min/1.73 sqM) Est GFR (CKD-EPI)NonAf 88 (>60 ml/min/1.73 sqM) Glucose 164 H (74-99) mg/dL Calcium 9.4 (8.4-10.2) mg/dL Magnesium 1.5 L (1.6-2.3) mg/dL Total Bilirubin 0.4 (0.2-1.3) mg/dL AST 23 (14-36) U/L ALT 20 (4-34) U/L Alkaline Phosphatase 94 (38-126) U/L Total Protein 7.4 (6.3-8.2) g/dL Albumin 4.5 (3.5-5.0) g/dL TSH 1.470 (0.465-4.680) mIU/L - EKG Data -: EKG Interpreted by Me EKG Comments: 12-lead Electrocardiogram Interpretation Note EKG was reviewed and interpreted by myself. 12-lead ECG performed at 0833 is interpreted by me as revealing supraventricular tachycardia at a rate of 161 beats per minute. [place] is normal. QRS duration is 97 ms, QTc is 365 ms.. Somewhat mildly diffuse ST segment depressions likely secondary to the underlying SVT.. R wave progression across the precordium was satisfactory. By my interpretation this EKG is non-diagnostic for acute ischemia. Rhythm strip shows conversion to normal sinus rhythm. Critical Care Time Critical Care Time: Yes Total Critical Care Time: 32 Disposition Clinical Impression: SVT (supraventricular tachycardia), Hypomagnesemia Disposition: HOME SELF-CARE Condition: Good Instructions (If sedation given, give patient instructions): Supraventricular Tachycardia (ED) Is patient prescribed a controlled substance at d/c from ED?: No Referrals: Krista Gonsalez MD [Primary Care Provider] - 1-2 days Dino Godinez DO [STAFF PHYSICIAN] - 1-2 days Time of Disposition: 10:40
[2024-03-06 12:06] VITALS: BP 148/75; PULSE 80; RESP 16
== END 2024-03-06 11:40 | disposition home or self-care (01) ==
LOC: EC 08:24
DX: I47.10 Supraventricular tachycardia, unspecified (principal); E83.42 Hypomagnesemia; Z91.09 Other allergy status, other than to drugs and biological substances; Z88.5 Allergy status to narcotic agent; Z91.040 Latex allergy status; Z88.2 Allergy status to sulfonamides; Z88.8 Allergy status to other drugs, medicaments and biological substances
CPT/HCPCS: 93005; 80053; 83735; 84443; 85025; 85610; 85730; 71046; 99285; 96365; 96375; 96361 ×2; J0153; J3475; 36415

== ENCOUNTER → 2024-05-03 | Outpatient (CLI) | payer MEDICAID ==
--- NOTE | 2024-05-03 09:51 | MM ---
Reason for Exam: Screening (asymptomatic). Last mammogram was performed 1 year(s) and 1 month(s) ago. Patient History: Menarche at age 17. First Full-Term at age 31. Late child-bearing (after 31). Postmenopausal. Patient has history of breast feeding. Progesterone for 5 years from age 27 until age 32. Unspecified Hormone for 4 years from age 27 until age 31. Risk Values: Shelly 5 year model risk: 1.9%. NCI Lifetime model risk: 8.6%. Prior Study Comparison: 10/20/2013 Bilateral Screening Mammogram, [facility]. 01/17/2015 Bilateral Screening Mammogram, [facility]. 08/19/2017 Bilateral Screening Mammogram, [facility]. 08/23/2020 Bilateral Screening Mammogram, [facility]. 04/30/2023 Bilateral MG 3D screening mammo w/cad, [facility]. Tissue Density: There are scattered areas of fibroglandular density. Findings: Analyzed By CAD. There is no suspicious group of microcalcifications or new suspicious mass in either breast. Overall Assessment: Negative, BI-RAD 1 Management: Screening Mammogram of both breasts in 1 year. Patient should continue monthly self-breast exams. A clinical breast exam by your physician is recommended on an annual basis. This exam should not preclude additional follow-up of suspicious palpable abnormalities. Note on Shelly scores and lifetime risk: 1. A Shelly score greater than 3% is considered moderate risk. If this is the case, consider specialist referral to assess eligibility for a risk reducing agent. 2. If overall lifetime risk for the development of breast cancer is 20% or higher, the patient may qualify for future screening with alternating mammogram and breast MRI. Electronically signed and approved by: Poornima Gore M.D. Radiologist
--- NOTE | 2024-05-03 11:46 | US ---
EXAMINATION TYPE: US thyroid st tissue head/neck DATE OF EXAM: 05/03/2024 COMPARISON: Thyroid ultrasound 02/02/2022, 08/19/2017 CLINICAL INDICATION: Female, 63 years old with history of E04.2 MULTINODULAR GOITER; thyroid nodule GLAND SIZE: Right Lobe: 5.1 x 1.9 x 1.8 cm Overall Parenchyma: homogeneous Left Lobe: 5.8 x 1.8 x 1.8 cm Overall Parenchyma: homogeneous Isthmus Thickness: .6 cm NODULES RIGHT: # of nodules measured on right: 1 1. .7 X .3 x .6 cm, lower medial, solid or almost completely solid, hypoechoic nodule, which is wid er than tall, with smooth margins, without echogenic foci. Marginal increase in size. TR 4. Prior size: .5 x .4 x .4 cm LEFT: # of nodules measured on left: 1 1. .7 X .7 x .8 cm, lower , solid or almost completely solid, hypoechoic nodule, which is wider tuyet n tall, with smooth margins, without echogenic foci. Marginal decrease in size. TR 4. Prior size: .9 x .7 x .8 cm ISTHMUS: # of nodules measured in the isthmus: 0 Bilateral neck scanned, no evidence of lymphadenopathy. IMPRESSION: Multinodular goiter redemonstrated with bilateral subcentimeter nodules redemonstrated. The left nodu le has marginally decreased in size while the right nodule has marginally increased in size. No new n odules identified. ACR TI-RADS LEVEL: TR-RADS 4 : Follow if > 1 cm, FNA if > 1.5 cm *Highest TI-RADS level nodule reported
== END | disposition home or self-care (01) ==
LOC: RADMAMWWP 08:53
PROVIDERS: ATTEND Family Medicine
DX: Z12.31 Encounter for screening mammogram for malignant neoplasm of breast (principal); E04.2 Nontoxic multinodular goiter; Z78.0 Asymptomatic menopausal state; E04.1 Nontoxic single thyroid nodule; R22.0 Localized swelling, mass and lump, head
CPT/HCPCS: 76536; 77063; 77067

== ENCOUNTER → 2024-09-22 | Outpatient (CLI) | payer MEDICAID ==
--- NOTE | 2024-09-22 13:26 | CT ---
EXAMINATION TYPE: CT lumbar spine wo con CT DLP: 195.6 mGycm, Automated exposure control for dose reduction was used. DATE OF EXAM: 09/22/2024 1:02 PM COMPARISON: None. CLINICAL INDICATION:Female, 63 years old with history of M54.50 Low back pain; PHH, Low back pain, pr e surgical TECHNIQUE: Multiple axial images were obtained from the midportion of T11 through the sacroiliac radha nts. Soft tissue and bone windows in coronal and sagittal planes were obtained and reviewed. Contrast used: none. Oral contrast used: none. FINDINGS: Alignment: There are 5 lumbar type vertebral bodies. Grade 1 anterolisthesis of L4 on L5 without evid ence of pars defects. Minimal levocurvature of the lumbar spine with apex at L4-L5. Bone: No evidence of fracture is identified. Bilateral SI joint degenerative changes. Prominent ante rior osteophyte at T10-T11. Discs: T12-L1: No spinal canal or neural foraminal stenosis is identified. L1-L2: No spinal canal or neural foraminal stenosis is identified. L2-L3: No spinal canal or neural foraminal stenosis is identified. L3-L4: Broad-based disc bulge with mild effacement of the anterior thecal sac. Bilateral facet arthro vladimir. Mild bilateral neural foraminal stenosis. L4-L5: Anterolisthesis with uncovering the disc. Broad-based disc bulge with bilateral facet arthropa thy contribute to moderate central canal stenosis. Moderate to severe bilateral neuroforaminal stenos is. L5-S1: Broad-based disc bulge with moderate effacement of anterior thecal sac. Bilateral facet arthro vladimir. Moderate bilateral neural foraminal stenosis. Other: None IMPRESSION: 1. No evidence for acute spinal fracture. 2. Moderate degenerative disc disease and facet arthropathy of the lower lumbar spine as described ab ove. 3. Grade 1 anterolisthesis at L4 on L5 without evidence of pars defects. [facility], , 09/22/2024 1:24 PM
== END | disposition home or self-care (01) ==
LOC: RADCTMAIN 08:42
PROVIDERS: ATTEND Orthopaedic Surgery
DX: M51.360 Other intervertebral disc degeneration, lumbar region with discogenic back pain only (principal); M47.816 Spondylosis without myelopathy or radiculopathy, lumbar region; M43.16 Spondylolisthesis, lumbar region; M99.73 Connective tissue and disc stenosis of intervertebral foramina of lumbar region
CPT/HCPCS: 72131

== ENCOUNTER → 2024-09-22 | Outpatient (CLI) | payer MEDICAID ==
--- NOTE | 2024-09-22 11:04 | BD ---
EXAMINATION TYPE: Axial Bone Density DATE OF EXAM: 09/22/2024 CLINICAL HISTORY: 63 years old Female. ICD-10 CODE: Z78.0 MENOPAUSAL STATE , Additional History: Height: 63 Weight: 262 FRAX RISK QUESTIONS: Family History (Parent hip fracture): no Glucocorticoids (More than 3mos): yes, asthma (Ex: prednisone, prednisolone, methylprednisolone, dexamethasone, and hydrocortisone). History of Fracture in Adulthood: only toes 3. Menopause before 45: no, at 54 RISK FACTORS HISTORY OF: bilat knee replacements, injections into lumbar and cervical spine, asthma, diabetic Surgery to Spine..injections only MEDICATIONS: bp meds, asthma meds, metformin, busperone, cymbalta, pain meds and nsaids EXAM MEASUREMENTS: Bone mineral densitometry was performed using the [employer] System. Bone mineral density as measured about the Lumbar spine is: ----- L1-L4(G/cm2): 1.382 T Score Values are as follows: ----- L1: 1.0 ----- L2: 1.5 ----- L3: 2.3 ----- L4: 1.7 ----- L1-L4: 1.7 Z Score Values are as follows: ----- L1: 1.2 ----- L2: 1.8 ----- L3: 2.5 ----- L4: 2.0 ----- L1-L4: 1.9 Bone mineral density is her baseline study today. Bone mineral density about the R hip (g/cm2): 1.194 Bone mineral density about the L hip (g/cm2): 1.162 T Score values are as follows: -----R Neck: 0.7 -----L Neck: -0.3 -----R Total: 1.5 -----L Total: 1.2 Z Score values are as follows: -----R Neck: 1.3 -----L Neck: 0.3 -----R Total: 1.7 -----L Total: 1.5 Bone mineral density is her first dexa study, baseline. FRAX%s: The graph provided illustrates a 15.2% chance for a major osteoporotic fx and a 0.5% chance f or the hips probability for fx in 10 years time. IMPRESSION: Normal (Values between +1 and -1 indicate normal bone mass). Consider repeating this study in 5 year s or sooner if there is some new clinical indication. NOTE: T-SCORE=SD OF THE YOUNG ADULT MEAN. [facility], , 09/22/2024 11:02 AM
== END | disposition home or self-care (01) ==
LOC: RADBDWWP 08:26
PROVIDERS: ATTEND Family Medicine
DX: Z78.0 Asymptomatic menopausal state (principal)
CPT/HCPCS: 77080

== ENCOUNTER → 2024-10-20 | Outpatient (CLI) | payer MEDICAID | END | disposition home or self-care (01) | LOC: LABPAT 07:36 | PROVIDERS: ATTEND Orthopaedic Surgery | DX: Z01.818 Encounter for other preprocedural examination (principal); Z22.322 Carrier or suspected carrier of Methicillin resistant Staphylococcus aureus; M48.061 Spinal stenosis, lumbar region without neurogenic claudication; M43.16 Spondylolisthesis, lumbar region | CPT/HCPCS: 86850; 86900; 86901; 87070 ==

== ENCOUNTER 2024-10-24 07:52 | Inpatient (IN) | payer MEDICAID ==
--- NOTE | 2024-10-22 12:11 | P.HPOR ---
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 She has an unstable Grade 2 L4-5 spondylolisthesis with 8mm motion on flexion/extension films, along with severe degenerative collapse and stenosis from L4-S1. She reports progressive symptoms including bladder incontinence for over a year, left lower extremity weakness (3/5 motor strength), and inability to stand upright. Conservative management including three epidural steroid injections, physical therapy, and medication management ([place], Gabapentin, Tylenol, and Ibuprofen) has failed to provide relief. Due to progressive neurological deficits and significant instability, she is scheduled for L4-S1 minimally invasive posterolateral and interbody fusion surgery to prevent further neurological deterioration and address her functional decline. Approach: LEFT MIS L4-S1 DEMOGRAPHICS: Age: 64 year Height: 5'2.5" Weight: 254 lbs BP:126/82 BMI: 45.72 kg/m2 Occupation: *Nurse CC: Lumbar pain VAS: 9 HISTORY: Ms. Louise presents to the office today, 10/18/24, for a pre-operative appointment preceding her L4-S1 MIS PLIBF. Patient continues to report pain across her lumbar region that radiates into the bilateral lower extremities, associated with numbness and tingling. Patient states her pain is increased with prolonged walking, sitting, and bending. She states she has been having bladder incontinence as well which has been off and on for the past year, but has become more frequent in the past month or two. Patient is unable to stand up straight and walks slightly bent over as this is the only position she can remain comfortable and relieve some of her nerve pains. She has previously trialed 3 ESIs with no relief. Patient has also trialed physical therapy with no improvement to her symptoms. * She is currently taking [place], Gabapentin, Tylenol, and Ibuprofen without resolution of her symptoms. Patient ambulates independently. * Patient denies any f/c/sob/cp, perineal numbness or tingling, no bowel issues as of yet. * The patients past social, medical, family, surgical history, as well as review of systems, have been reviewed. Please refer to the History and Physical form that has been scanned into our electronic medical record system. * 16 points review of systems completed and as stated in HPI, all other systems reviewed are negative. PAST TREATMENTS: PAST IMAGING: -YES, MRI, XR, KINETIC - TRAUMA RELATED: -NO - WORK RELATED: -NO - PT IN LAST 6 MONTHS: -YES, no relief -NO IMPROVEMENT, MADE WORSE HAD TO STOP PHYSICIAN DIRECTED HOME EXERCISE PROGRAM: -YES -NO IMPROVEMENT ACTIVITY MODIFICATION: -YES -LIMITED TO 15 LBS. CANNOT DO ADLS SECONDARY TO THIS MEDICATIONS: -YES, [place], Gabapentin, Tylenol, and Ibuprofen - ALTERNATIVE INTERVENTIONS (CHIROPRACTIC, ACUPUNCTURE, MASSAGE, RICE): -YES - BRACING: -NO - INJECTIONS (ELVA, TF, RFA): -YES, 3 ELVA with no relief - MEDICAL HISTORY: Past Medical History: REVIEWED STATED IN CHART Past Surgical History: REVIEWED STATED IN CHART Social History: REVIEWED STATED IN CHART SMOKING: Never smoker ETOH: None SUBSTANCES: None Family History: REVIEWED STATED IN CHART P1 Current Medications: Rx: SINGULAIR 5 MG ORAL Tablet, Ref: 11 Instructions: Take 1 Tablet ORAL daily. Rx: Advair Diskus Ref: 0 Instructions: 2 puffs twice daily Rx: Aleve 220 mg capsule Ref: 0 Instructions: take 1 capsule (220 mg) by oral route every 12 hours as needed Rx: Cymbalta Ref: 0 Instructions: as directed Rx: metFORMIN 500 mg tablet Ref: 0 Instructions: take 1 tablet (500 mg) by oral route 2 times per day with morning andevening meals Rx: ibuprofen Ref: 0 Instructions: Qid Rx: HYDROcodone 10 mg-acetaminophen 325 mg tablet Ref: 0 Instructions: take 1 tablet by oral route every 4-6 hours as needed for pain Dr. Painter P1 PHYSICAL EXAM: General: AOX3, NAD, Well hydrate, well nourished HEENT: No lumps or masses Extremities: No color changes, no pooling INTEGUMENT: Appearance: Normal color and turgor Surgical Incisions: N/A Hairy Patches: ABSENT Dorsal Skin Dimples: Normal [employer] spots: ABSENT PALPATION: TTP Midline: NO Paracervical: NO Parathoracic: NO Paralumbar: YES, SEVERE; STEP OFF PALPATED AT L4-5 REGION CENTRALLY SIJ TESTING (Micky's, FABER4, Compression, Distraction, Thigh Thrust, Hip Thrust): TESTED/NOT TESTED * POSITIVE FINDINGS: NA NEGATIVE FINDINGS: Micky's, FABER4, Compression, Distraction, Thigh Thrust, Hip Thrust POSTURAL BALANCE: Coronal: BALANCED Sagittal: BALANCED Shoulder height: LEVEL Pelvic Girdle: LEVEL ROM AND APPEARANCE: Neck: UNRESTRICTED Lumbar: RESTRICTED WITH SEVERE PAIN Shoulders: Symmetrical Hips: Symmetrical Knees: Symmetrical Hands: Symmetrical Feet: Symmetrical VASCULAR STATUS: PALPABLE PULSES B/L UE AND LE 2/4 RAD/ULNAR/DP/PT Edema: NONE NEUROLOGICAL EXAMINATION: Mental Status: Awake, alert, fully oriented with normal attention, concentration, and memory. Fluent appropriate speech. CRANIAL NERVES: I: Olfactory not assessed. II: Visual acuity normal, no visual field deficit noted with confrontation. III, IV: Normal pupillary reflexes & intact extraocular movements without nystagmus. V, : Intact symmetrical facial sensation. VII: Intact symmetrical facial motor movement: Hearing intact. IX, X: Intact gag, swallow, & normal voice. XI: Sternocleidomastoid, trapezius function intact. XII: Tongue midline with normal movements. TENSIONING: * L'HERMITTE'S SIG:NEG SPURLUNG'S SIGN:NEG UPPER EXTREMITY TENSIONING SIGNS: NEG CUBITAL TUNNEL COMPRESSION:NEG TINELS AT WRIST:NEG STRAIGH LEG RAISE:POS LEFT CONTRALATERAL STRAIGHT LEG RAISE: POS RIGHT MOTOR EXAM (0-5/5, NT) Muscle appearance: Symmetrical, without signs of atrophy or dystrophy UPPER EXTREMITY RIGHT LEFT Shoulder Abduction 5 5 Biceps 5 5 Triceps 5 5 Wrist Extension 5 5 Hand Intrinsics 5 5 Oil And Gas Specialist 5 5 LOWER EXTREMITY RIGHT LEFT Hip Flexion 4+ 5 Knee Extension 4+ 5 Knee Flexion 4+ 5 Dorsiflexion 4+ 3 Plantarflexion 4+ 3 EHL 4+ 3 FHL 4+ 3 Heel drop Right; FOOT DROP LEFT LIMITED BY PAIN UPPER PORTION OF LEFT LEG AND TENSIONIONG REFLEXES (0-4/2, NT): RIGHT LEFT Bicep 2 2 Brachioradialis 2 2 Triceps 2 2 Patellar 2 1 Achilles 2 1 PATHOLOGICAL REFLEXES: RIGHT LEFT CASSIDY'S ABSENT ABSENT CLONUS ABSENT ABSENT BABINSKI ABSENT ABSENT RECTAL TONE: INTACT/NT SENSATION (0-4, NT): Sensation intact to LT and Pain * C5-T1 distribution BUE * L2-S2 distribution BLE *Exceptions below* DERMATOMAL DEFICIT/RADICULAR PATTERN: L4-5 LLE>RLE, L5-S1 BLE GAIT AND FUNCTIONAL EVALUATION: AMBULATORY AID NONE ROMBERG'S TEST INTACT HAND AND FINGER DEXTERITY INTACT YES DYSDIADOCHOKINESIA EXAM NEG B/L YES TOE/HEEL WALK INTACT WITH GOOD BALANCE NO SQUAT AND RISE W/O ASSISTANCE TO 60 DEG KNEE FLEXION NO SINGLE LEG STANCE NOT INTACT TRENDELEN[place]G NEG IMAGING: XRAY Date: 09/18/24 Location: [facility] Region: LUMBAR/PELVIS Views: AP/LAT/FLEX/EXT/AP PELVIS IMAGES ARE REVIEWED WITH THE PATIENT IN OFFICE AND DEMONSTRATE THE FOLLOWING: FINDINGS: UNSTABLE GRADE 2 SPONDYLOLISTHESIS OF L4-5 WITH 8 MM MOTION ON F/E FILMS. THERE IS SPONDYLOSIS FROM L4-S1 WITH DISC COLLAPSE, HEIGHT LOSS, FACET ARTHROSIS THAT IS SEVERE. THERE IS SEVERE DEGENERATIVE CHAGNES FROM L3-S1 OVERALL. NO ACUTE FRACTURTES NOTED. PARS ELONGATION WITHOUT DEFINITIVE PARS DEFECT, CT WOULD BETTER QUANTIFY. NO LESIONS. MRI Date: 08/04/24 Location: [facility] Region: Lumbar Contrast: N IMAGES ARE REVIEWED WITH THE PATIENT IN OFFICE AND DEMONSTRATE THE FOLLOWING: FINDINGS: SIMILAR FINDINGS WITH GRADE I-II UNSTABLE SPONDYLOLISTHESIS L4-5 WHICH IS PARTIALLY REDUCED ON THIS SUPINE FILM. THERE IS SEVERE DEGENERATIVE COLLAPSE OF L4-S1 AND OVERALL FROM L3-S1 WITH FLATTENED LORDOSIS SECONDARY TO THE COLLAPSE, SEVERE FACET ARTHROSIS WITH HYPERTROPHY, BOGGY FACETS AND LIGAMENTAL HYPERTROPHY CAUSING CENTRAL AND LATERAL RECESS STENOSIS THAT IS SEVERE. AT L4-S1 THERE IS LIGAMENTAL AND BONY STENOSIS CAUSING SEVERE CENTRAL ENCROACHMENT ALONG WITH VERTEBRAL SUBLUXATION CAUINSING SEVERE CENTRAL AND FORAMINAL STENOSIS. NO ACUTE FRACTURES OR LESIONS NOTED AT THIS TIME. IMPRESSION: It was my pleasure to have seen and examined Sweetie. I reviewed the patient's clinical syndrome, physical findings, and imaging studies during the appointment today. It is my impression that the patient has a diagnosis of. 1.L4-5 unstable Grade 2 spondylolisthesis with spondylosis and stenosis 2.Lower extremity radiculopathy 3.Low back pain 4. Left lower extremity radiculopathy PLAN: DISCUSSION: -I have discussed with the patient their clinical signs and symptoms, imaging, and treatment options. We have discussed risks, benefits, potential outcomes and natural course as pertains top their issues. The patient understands and would like to proceed as follows below: SURGICAL RECOMMENDATIO: -L4-S1 POSTEROLATERAL AND INTERBODY FUSION APPROACH: MINIMALLY INVASIVE POSTERIOR, LEFT IMPLANTS: TAYO EVERST RODS AND SCREWS; GLOBUS SABLE CAGES, AUTOGRAFT/ALLOGRAFT DURATION: 2.5 HR PRE OP IMAGING -CT scan of lumbar spine ordered today FOR SURGICAL PLANNING Spine Surgery Risk Review Ms. Louise is presenting for evaluation of lumbar pain. It was my pleasure to have seen and examined Ms. Louise. In our visit today we have had a chance to go over subjective complaints, physical examination findings and treatments including the natural course history without intervention and various interventional options. The patients imaging demonstrates: XRAY Date: 08/18/24 Location: [facility] Region: LUMBAR/PELVIS Views: AP/LAT/FLEX/EXT/AP PELVIS IMAGES ARE REVIEWED WITH THE PATIENT IN OFFICE AND DEMONSTRATE THE FOLLOWING: FINDINGS: UNSTABLE GRADE 2 SPONDYLOLISTHESIS OF L4-5 WITH 8 MM MOTION ON F/E FILMS. THERE IS SPONDYLOSIS FROM L4-S1 WITH DISC COLLAPSE, HEIGHT LOSS, FACET ARTHROSIS THAT IS SEVERE. THERE IS SEVERE DEGENERATIVE CHAGNES FROM L3-S1 OVERALL. NO ACUTE FRACTURTES NOTED. PARS ELONGATION WITHOUT DEFINITIVE PARS DEFECT, CT WOULD BETTER QUANTIFY. NO LESIONS. MRI Date: 08/04/24 Location: [facility] MRI Region: Lumbar Contrast: N IMAGES ARE REVIEWED WITH THE PATIENT IN OFFICE AND DEMONSTRATE THE FOLLOWING: FINDINGS: SIMILAR FINDINGS WITH GRADE I-II UNSTABLE SPONDYLOLISTHESIS L4-5 WHICH IS PARTIALLY REDUCED ON THIS SUPINE FILM. THERE IS SEVERE DEGENERATIVE COLLAPSE OF L4-S1 AND OVERALL FROM L3-S1 WITH FLATTENED LORDOSIS SECONDARY TO THE COLLAPSE, SEVERE FACET ARTHROSIS WITH HYPERTROPHY, BOGGY FACETS AND LIGAMENTAL HYPERTROPHY CAUSING CENTRAL AND LATERAL RECESS STENOSIS THAT IS SEVERE. AT L4-S1 THERE IS LIGAMENTAL AND BONY STENOSIS CAUSING SEVERE CENTRAL ENCROACHMENT ALONG WITH VERTEBRAL SUBLUXATION CAUINSING SEVERE CENTRAL AND FORAMINAL STENOSIS. NO ACUTE FRACTURES OR LESIONS NOTED AT THIS TIME. On physical exam, Ms. Louise demonstrates: Patient reports pain across her lumbar region that radiates into the bilateral lower extremities, associated with numbness and tingling. Patient states her pain is increased with prolonged walking, sitting, and bending. She states she has been having bladder incontinence for over 1 year. Patient is unable to stand up straight and walks slightly bent over. She has previously trialed 3 ELVA with no relief. Patient has also trialed physical therapy with no improvement to her symptoms. She is currently taking [place], Gabapentin, Tylenol, and Ibuprofen without resolution of her symptoms. I have explained to the patient that as their condition progresses it will cause further neurological deficits and eventual paralysis. Based on the patients imaging, physical exam, and the rapid progression and disabling nature of their symptoms, at this time I recommend surgery in the form of a: L4-S1 PR TLIF. I discussed the risk and benefits of this procedure at length with Ms. Louise. The patient agreed to considered pursuing the procedure abovementioned. Prior to surgery, she should follow up with her PCP (Cardio, ID, IM etc) for clearance. Questions were invited and answered, and the patient wishes to proceed as outlined below. Currently, I am recommendin.L4-S1 POSTEROLATERAL AND INTERBODY FUSION, MINIMALLY INVASIVE 2.Follow up with PCP for surgical clearance 3.Review of surgical risks and benefits as well as an educational packet on the proposed surgical procedure. 4. CT SCAN 5. PRE OP LABS, EKG, CXR SURGICAL PLANNING AND OPTIMIZATION Risks: All surgical procedures come with inherent risks, including those related to positioning, anesthesia, intraoperative findings, and postoperative complications. It is important to understand that surgery does not come with any guarantee of a successful outcome as complications and adverse events are always possible. The patient was given a handout in office today discussing the surgical procedure and risks associated with the intervention, both of which were discussed with the patient. These risks include but are not limited to the following: * Experiencing same, different or even worse symptoms in back, neck, arms, or legs compared to before surgery. Requiring further surgery or other forms of treatment presently or at some time in the future at same or other levels of the intended spine surgery. On an extreme but fortunately relatively rare basis severe complication such as blindness, stroke, heart attack, temporary and/or permanent nerve injury, paralysis, coma, or may occur, sometimes without known explanation. Surgical complications may include but are not limited to risk of infection, fluid accumulation in the surgical dissection site, including a seroma or hematoma, that requires additional surgery, wound drainage, bleeding, new numbness or weakness, vision changes/loss, spinal fluid leakage, non-healing and/or infected incision, headaches, difficulty or inability to swallow, hoarseness, hemopneumothorax, pneumothorax, impotence, retrograde ejaculation, vaginal dryness; injury to nerves, spinal cord, blood vessels, lymphatics or other vital organs (i.e., bowel injury, injury to the great vessels); heterotopic bone formation; complications related to the hardware such as screws, rods, cages including misplaced hardware, device failure, instrumentation at the wrong spine level, hardware fracture/breakage, or hardware loosening; vertebral failure of the spinal column above or below the newly placed hardware; retained surgical instrumentations or devices and the need for further surgery. * Medical risks of the planned spine surgery include but are not limited to generalized Infections to the whole body or local areas outside of the surgical site (sepsis), heart attack, bleeding, anaphylaxis, meningitis, seizure, epilepsy, hearing loss, burn diaz, laceration of the head or other areas of the body, bruising, hypersensitivity of the skin, bladder over distension; allergic reaction; shoulder injury related to positioning; fat, blood and air clots to other areas of the body like heart, lungs, brain; failure of internal organs such as lungs, kidneys, liver and excessive bleeding. If blood transfusions are necessary, note that transfusions may cause intolerance reactions such as anaphylaxis or other complex reactions. Despite best efforts, the results of spine surgery might not heal in terms of bone, soft tissues such as skin, fascia, ligaments, and joints. Additionally, in order to achieve best possible results, spine surgery may be carried out beyond the initially planned levels and involve decompression, fusion including insertion of hardware at levels other than the original intended area of surgical interest change some portions of the procedure in order to ensure the best possible outcomes. With spine surgery and spinal fusion, there are different off label uses of instrumentation (devices, implants and hardware) as well as biological substances (bone morphogenic proteins, demineralized bone matrix) as well as using extra bone from allograft sources (i.e. cadaver bone) or autograft (iliac crest bone, ribs, or the spine itself). The patient has been given information about these practices and their inherent risks and benefits. [facility] is an educational center that serves as a training facility for neurosurgical and orthopedic MARGARINE CHURN OPERATOR and Nursing students. Physician assistants are medically trained surgical providers who function in the outpatient, inpatient, and operating room setting under the direct supervision of the attending surgeon. [facility] has multiple operating rooms with single and overlapping rooms running daily. They currently function under the required guidelines as produced by the [facility] with regards to the overlapping rooms and will continue to comply with changes to this policy as they occur. The requirements include and are complied with as follows: (1) the critical portions of the overlapping rooms will not occur at the same time, (2) the attending physician will be physically present during the critical portions of the procedure and immediately available during the entire case, and (3) a back-up attending is designated should the primary attending not be immediately available. The patient has had a chance to review all the listed information, has been given print outs detailing this information, and has had all his/her questions answered to their satisfaction. It was my pleasure to have seen and examined Ms. Louise. In our visit today we have had a chance to go over my understanding of our patient's current cond ition, the natural course history without intervention and various interventional options. Questions were invited and answered, and the patient wishes to proceed as outlined above. I have seen and examined the patient for 25 minutes and we have spent more than 50% of the time in repeat and detailed counseling about the patient's condition, its natural course history with out and as much as can be predicted with surgery and re-review of various surgical treatment options. In conclusion, Ms. Louise requested we proceed with the above suggested surgery and are willing to accept risks and limitations of the suggested surgery as nature of the disease process and our best attempts at treatment for the condition. SURGICAL RATIONALE: The patient presents with severe, progressive neurological symptoms including bilateral radiculopathy, bladder incontinence, and left lower extremity weakness (3/5) caused by an unstable Grade 2 L4-5 spondylolisthesis with 8mm of motion on flexion/extension films. Imaging demonstrates severe degenerative collapse of L4-S1 with significant central and foraminal stenosis. Conservative management including ESIs, PT, and medication management has failed. Given the progressive neurological deficits, significant instability, and failure of conservative treatment, surgical intervention is medically necessary to prevent further neurological deterioration and address the patient's functional decline. CODING RATIONALE: 72853 - Primary code for arthrodesis, combined posterior or posterolateral technique with posterior interbody technique including laminectomy and/or discectomy, single interspace; lumbar - This will be used for the L4-5 level 49891 - Each additional interspace (List separately in addition to code for primary procedure) - This will be used for the L5-S1 level 21367 - Posterior segmental instrumentation (e.g., pedicle fixation, dual rods with multiple hooks and sublaminar wires); 3 to 6 vertebral segments - Required for stabilization of L4-S1 levels 43438 - Laminectomy, facetectomy, or foraminotomy with decompression of spinal cord, cauda equina and/or nerve root(s) performed during posterior interbody arthrodesis, lumbar; single vertebral segment - For decompression at L4-5 88399 - Each additional segment - For decompression at L5-S1 40919 - Insertion of interbody biomechanical device(s) (e.g., synthetic cage, mesh) with integral anterior instrumentation for device anchoring when performed to intervertebral disc space in conjunction with interbody arthrodesis, each interspace - For placement of interbody cages at both L4-5 and L5-S1 48795 - Stereotactic computer-assisted (navigational) procedure; spinal - For use of stereotactic navigation during pedicle screw placement All codes are supported by the documented pathology including unstable spondylolisthesis, severe stenosis, progressive neurological deficits, and multi-level degenerative changes requiring decompression and stabilization. MEDICAL NECESSITY: Medical necessity for surgical intervention is clearly established in this case based on multiple criteria. The patient presents with severe, progressive neurological symptoms including documented bladder incontinence for over one year, left lower extremity weakness (3/5 motor strength), bilateral radicular symptoms, and chronic lumbar pain rated 7/10 on the VAS scale. Imaging confirms an unstable Grade 2 spondylolisthesis at L4-5 with significant 8mm of motion on flexion/extension films, severe degenerative collapse from L4-S1, and severe central and foraminal stenosis causing neural compression. The patient has failed extensive conservative management including three epidural steroid injections, physical therapy, and multimodal pain management with [place], Gabapentin, Tylenol, and Ibuprofen. Her condition significantly impacts activities of daily living, as evidenced by her inability to stand upright, difficulty with prolonged walking and sitting, and forward-flexed posture. The patient's BMI of 45.72 and occupation as a mammogram fork lift technician require consideration of ergonomic factors that may contribute to further progression without surgical intervention. Without surgical stabilization and decompression, the patient is at high risk for continued neurological deterioration, potentially leading to permanent nerve damage and paralysis. The proposed L4-S1 posterolateral and interbody fusion with decompression represents the most appropriate surgical intervention to address both the mechanical instability and neurological compression, with the goal of preventing further neurological deterioration and improving the patient's functional status. FOLLOW UP: POST-OP PLAN AT NEXT VISIT: * RECHECK PATIENT EDUCATION: Medications Reviewed: YES In our visit today Ms. Louise and I have had a chance to go over my understanding of the patient's current condition, the natural course history without intervention and various interventional options. Questions were invited and answered, and the patient wishes to proceed as outlined above. I will be sure to keep you updated after Ms. Louise returns here for further follow-up. Thank you again for your referral. Please do not hesitate to contact me if you have any further questions. Signed and authenticated by: Mary Ochoa [facility] [address] [place] [id number] . This message is confidential, intended only for the named recipient(s) and may contain information that is privileged or exempt from disclosure under applicable law. If you are not the intended recipient(s), you are notified that the dissemination, distribution or copying of this information is prohibited. If you received this message in error, please notify the sender then delete this message. Past Medical History Past Medical History: Asthma, Diabetes Mellitus, Fibromyalgia, Osteoarthritis (OA), Skin Disorder Additional Past Medical History / Comment(s): "borderline BP problem", IBS, psoriasis, thyroid nodule, History of Any Multi-Drug Resistant Organisms: None Reported Past Surgical History: Section, Joint Replacement, Orthopedic Surgery Additional Past Surgical History / Comment(s): chaim knee replacement, mass removed from rt shoulder, left TMJ surgery, surgery left index finger, Past Anesthesia/Blood Transfusion Reactions: Postoperative Nausea & Vomiting (PONV) Additional Past Anesthesia/Blood Transfusion Reaction / Comment(s): "gagging for 40 minutes post op" Past Psychological History: Anxiety Smoking Status: Never smoker Past Alcohol Use History: Rare Past Drug Use History: None Reported - Past Family History Mother Family Medical History: No Reported History Father Family Medical History: COPD Medications and Allergies Home Medications Medication Instructions Recorded Confirmed Type Montelukast [Singulair] 10 mg PO HS 11/27/14 03/06/24 History DULoxetine HCL [Cymbalta] 60 mg PO BID 08/24/17 03/06/24 History Albuterol Inhaler [Ventolin Hfa 2 puff INHALATION RT-Q4H PRN 09/23/20 03/06/24 History Inhaler] HYDROcodone/APAP 7.5-325MG [[place] 0.5 - 1 tab PO TID PRN 09/23/20 03/06/24 History 7.5-325] Ferrous Sulfate Oral Elixir 300 mg PO DAILY 03/06/24 03/06/24 History [Feosol Liquid] Fluticasone Propion/Salmeterol 1 puff INHALATION RT-BID 03/06/24 03/06/24 History [Wixela 250-50 Inhub] Gabapentin 300 mg PO TID PRN 03/06/24 03/06/24 History Ibuprofen [Motrin Ib] 200 - 600 mg PO Q6H PRN 03/06/24 03/06/24 History Losartan/Hydrochlorothiazide 1 tab PO DAILY 03/06/24 03/06/24 History [Hyzaar 100-25 Tablet] Multivitamins, Thera [Multivitamin 1 tab PO DAILY 03/06/24 03/06/24 History (formulary)] Naproxen Sodium [Aleve] 220 - 440 mg PO BID PRN 03/06/24 03/06/24 History Omeprazole [PriLOSEC] 20 mg PO HS 03/06/24 03/06/24 History busPIRone HCL 5 mg PO BID 03/06/24 03/06/24 History Allergies Allergy/AdvReac Type Severity Reaction Status Date / Time adhesive Allergy blisters Verified 03/06/24 09:44 codeine Allergy throat Verified 03/06/24 09:44 swelling and redness erythromycin base Allergy Unknown Verified 03/06/24 09:44 Childhood latex Allergy red, Verified 03/06/24 09:44 irritated skin Sulfa (Sulfonamide Allergy Unknown Verified 03/06/24 09:44 Antibiotics) Childhood tetracycline Allergy Unknown Verified 03/06/24 09:44 Childhood Physical Examination Osteopathic Statement: *. No significant issues noted on an osteopathic structural exam other than those noted in the History and Physical/Consult.
[2024-10-23 09:35] VITALS: BMI 45.5
[~2024-10-24 07:52] MED LIST: ONDANSETRON 4 MG/2 ML VIAL IVP PRN; TRANEXAMIC 1,000 MG/100ML-NACL 1,000 MG in SALINE 1 100ML.BAG IVPB PRN
[2024-10-24] MEDS: IV FLUID CONTINUATION 1,000 ML IV ONE (08:05)
[2024-10-24] MEDS ORDERED: fentaNYL (PF) 50 MCG/ML 2 ML AMP IVP PRN (08:06)
[2024-10-24] MEDS ORDERED: MIDAZOLAM 2 MG/2 ML VIAL IV PRN (08:06)
[2024-10-24] MEDS ORDERED: LIDOCAINE 1% (10MG/ML) FOR IV START INTRADERMA PRN (08:06)
[2024-10-24] MEDS: LACTATED RINGERS 1,000 ML IV SCH (08:43)
[2024-10-24 08:45] LABS: Glucose,Whole Blood 144 mg/dL (70-110)
[2024-10-24] MEDS: DEXAMETHASONE SOD PHOSPHATE 4 MG/ML 1 ML VIAL IV ONE (08:47)
[2024-10-24] MEDS: ACETAMINOPHEN TAB 500 MG TAB PO PRN (08:47)
[2024-10-24] MEDS: GABAPENTIN 300 MG CAP PO PRN (08:47)
[2024-10-24] MEDS: ONDANSETRON 4 MG/2 ML VIAL IVP ONE (08:47)
[2024-10-24 09:00] LABS: Basophils % (A) 0 %; Eosinophils # (A) 0.2 k/uL (0-0.7); Eosinophils % (A) 2 %; HCT 30.9 % (34.0-46.0); HGB 10.1 gm/dL (11.4-16.0); Lymphocytes % (A) 22 %; MCH 26.2 pg (25.0-35.0); MCHC 32.7 g/dL (31.0-37.0); MCV 80.3 fL (80.0-100.0); Mean Platelet Volume 7.6; Monocytes # (A) 0.5 k/uL (0-1.0); Monocytes % (A) 6 %; Neutrophils # (A) 6.4 k/uL (1.3-7.7); Neutrophils % (A) 68 %; Platelet Count 354 k/uL (150-450); RBC 3.84 m/uL (3.80-5.40); RDW 15.2 % (11.5-15.5); WBC 9.4 k/uL (3.8-10.6)
[2024-10-24 09:05] LABS: Prothrombin Time 11.1 sec (10.0-12.5)
[2024-10-24] MEDS: SCOPOLAMINE 1 MG/72 HR PATCH TRANSDERM STA (09:08)
[2024-10-24] MEDS ORDERED: PROPOFOL 10 MG/ML 20 ML VIAL IV ONE (09:22)
[2024-10-24] MEDS ORDERED: TRANEXAMIC 1,000 MG/100ML-NACL PREMIX BAG ONE (09:22)
[2024-10-24] MEDS ORDERED: SUCCINYLCHOLINE CHLORIDE 200 MG/10 ML VIAL IV ONE (09:22)
[2024-10-24] MEDS ORDERED: ePHEDrine 50 MG/ML 1 ML VIAL ONE (09:22)
[2024-10-24] MEDS ORDERED: NEOSTIGMINE 1 MG/ML 10 ML VIAL ONE (09:22)
[2024-10-24] MEDS ORDERED: KETAMINE HCL IN 0.9 % NACL 50 MG/5 ML SYRINGE ONE (09:22)
[2024-10-24] MEDS ORDERED: MIDAZOLAM 2 MG/2 ML VIAL ONE (09:22)
[2024-10-24] MEDS ORDERED: LIDOCAINE 1% INJ 10MG/ML (20 ML MDV) ONE (09:22)
[2024-10-24] MEDS ORDERED: GLYCOPYRROLATE 0.2 MG/ML 2 ML VIAL ONE (09:22)
[2024-10-24] MEDS ORDERED: HYDROmorphone (PF) 1 MG/ML ONE (09:22)
[2024-10-24] MEDS ORDERED: fentaNYL (PF) 50 MCG/ML 2 ML AMP ONE (09:22)
[2024-10-24] MEDS ORDERED: ROCURONIUM 10 MG/ML (5 ML VIAL) IV ONE (09:22)
[2024-10-24 09:24] LABS: African American GFR (CKD) >90 (>60 ml/min/1.73 sqM); Anion Gap 11 mmol/L; Blood Urea Nitrogen 19 mg/dL (7-17); Calcium 9.2 mg/dL (8.4-10.2); Carbon Dioxide 28 mmol/L (22-30); Chloride 99 mmol/L (98-107); Glucose 141 mg/dL (74-99); Non-African American GFR(CKD) >90 (>60 ml/min/1.73 sqM); Potassium 3.5 mmol/L (3.5-5.1); Sodium 138 mmol/L (137-145)
[2024-10-24] MEDS: THROMBIN (BOVINE) 5,000 UNIT VIAL TOPICAL ONE ×2 (09:27→10:12)
[2024-10-24] MEDS: LACTATED RINGERS 1,000 ML IV ONE (11:09)
[2024-10-24] MEDS: LIDOCAINE 2%-EPI 1:100,000 20 ML VIAL SQ ONE (12:54)
[2024-10-24] MEDS: BUPIVACAINE (PF) 0.5% 30 ML VIAL SQ ONE (12:55)
[2024-10-24] MEDS ORDERED: MAGNESIUM HYDROXIDE 2,400 MG/30 ML CUP PO PRN (13:30)
[2024-10-24] MEDS ORDERED: HYDROcodone/APAP 5-325MG 1 EACH TAB PO PRN (13:30)
[2024-10-24] MEDS ORDERED: HYDROmorphone 0.5 MG/0.5 ML SYRINGE IVP PRN (13:30)
[2024-10-24] MEDS ORDERED: ONDANSETRON 4 MG/2 ML VIAL IVP PRN (13:30)
[2024-10-24] MEDS: HYDROmorphone 0.5 MG/0.5 ML SYRINGE IVP PRN (14:03)
--- NOTE | 2024-10-24 14:03 | FL ---
EXAMINATION TYPE: FL guidance operating room DATE OF EXAM: 10/24/2024 HISTORY: Fluoroscopy time Total dose area product (DAP) in uGy*m?, mGy*cm? (or similar): 112.64 IMPRESSION: 1. Fluoroscopy time. [facility], , 10/24/2024 2:00 PM
[2024-10-24] MEDS ORDERED: ALBUTEROL NEBULIZED 2.5 MG/3 ML INHALATION PRN (14:18)
[2024-10-24] MEDS ORDERED: GABAPENTIN 300 MG CAP PO PRN (14:18)
[2024-10-24] MEDS ORDERED: DEXTROSE 50% SYRINGE 50 ML IVP PRN ×2 (14:20)
[2024-10-24] MEDS: SYMBICORT 80-4.5 MCG INHALER INHALATION SCH (15:09)
--- NOTE | 2024-10-24 16:03 | CT ---
EXAMINATION TYPE: CT lumbar spine wo con DATE OF EXAM: 10/24/2024 3:56 PM COMPARISON: 09/22/2024. CLINICAL INDICATION: Female, 64 years old with history of s/p L4-S1 MIS PLIF; PHH, s/p L4-S1 MIS PLIF . TECHNIQUE: Multiple axial images were obtained from the midportion of T11 through the sacroiliac radha nts. Soft tissue and bone windows in coronal and sagittal planes were obtained and reviewed. Contrast used: mL of , (None, if empty). Oral contrast used: (None, if empty). CT DLP: 1970.6 mGycm, Automated exposure control for dose reduction was used. FINDINGS: Postsurgical changes to the lumbar spine with fixation hardware at L4, L5 and S1. Discectomy at L4-L5 and L5-S1. Hardware limits evaluation at these levels. Hardware appears intact. No evidence of fract ure. Postsurgical changes in the soft tissues with foci of gas present. Posterior back skin óscar are p resent. IMPRESSION: Postsurgical changes without evidence of immediate post operative complication. [facility], , 10/24/2024 4:01 PM
[2024-10-24] MEDS: GABAPENTIN 300 MG CAP PO SCH (16:17)
[2024-10-24 16:35] LABS: Glucose,Whole Blood 199 mg/dL (70-110)
[2024-10-24] MEDS: INSULIN ASPART (NovoLOG) 100 UNIT/ML VIAL SQ SCH (16:41)
[2024-10-24] MEDS: metFORMIN 500 MG TAB PO SCH (16:42)
[2024-10-24] MEDS: ACETAMINOPHEN TAB 325 MG TAB PO SCH (16:44)
--- NOTE | 2024-10-24 18:11 | P.OP ---
Date of Procedure: 10/24/24 Preoperative Diagnosis: 1. L4-5 GRADE 2 SPONDYLOLISTHESIS, UNSTABLE 2. L5-S1 GRADE 1 SPONDYLOLISTHESIS UNSTABLE 3. 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 LOW BACK PAIN 5. LE WEAKNESS WITH PARESTHESIAS 6. OBESITY Postoperative Diagnosis: 1. L4-5 GRADE 2 SPONDYLOLISTHESIS, UNSTABLE 2. L5-S1 GRADE 1 SPONDYLOLISTHESIS UNSTABLE 3. 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 LOW BACK PAIN 5. LE WEAKNESS WITH PARESTHESIAS 6. OBESITY Procedure(s) Performed: 1. L4-5 INTRADISCAL OSTEOTOMY, 3 COLUMN, FOR DEFORMITY CORRECTION 2. L4-5 POSTEROLATERAL AND INTERBODY FUSION 3. L5-S1 POSTEROLATERAL AND INTERBODY FUSION 4. L4-S1 SEGMENTAL INSTRUMENTATION 5. L4-5 AND L5-S1 LAMINECTOMY, FACETECOMTY AND FORAMINOTOMY FOR DECOMPRESSION OF NEURAL ELEMENTS, DEFORMITY CORRECTION AND CAGE PLACEMENT 6. INSERTION OF BIOMECHANICAL DEVICES L4-5 AND L5-S1, CAGES, x2 UES OF IONM ALL SCREWS TESTING > 20 mA MOD22: THIS CASE TOOK 75% LONGER THAN EXPECTED DUE TO SEVERITY OF DISEASE, BMI >40, COMPLEXTIY OF DEFORMITY AND CORRECTION. Implants: -TAYO EVEREST RODS AND SCREWS -GLOBUS SABLE CAGE X1 -GLOBUS INTRALIFT CAGE X1 -MAGNATOS, ARTHROCELL, ALLOCELL, CONTOUR, AUTOGRAFT Anesthesia: GETA Surgeon: Noel Connelly Public Information Officer #1: Liban Robles (was present from positioning to first cage placement) Public Information Officer #2: Xavier Arguello (was present from first cage placement to dressing placement) Estimated Blood Loss (ml): 100 IV fluids (ml): 1,500 Urine output (ml): 250 Pathology: none sent Condition: stable Disposition: PACU Indications for Procedure: Ms. Louise is presenting for evaluation of lumbar pain. It was my pleasure to have seen and examined Ms. Louise. In our visit today we have had a chance to go over subjective complaints, physical examination findings and treatments including the natural course history without intervention and various interventional options. The patients imaging demonstrates: XRAY Date: 08/18/24 Location: [facility] Region: LUMBAR/PELVIS Views: AP/LAT/FLEX/EXT/AP PELVIS IMAGES ARE REVIEWED WITH THE PATIENT IN OFFICE AND DEMONSTRATE THE FOLLOWING: FINDINGS: UNSTABLE GRADE 2 SPONDYLOLISTHESIS OF L4-5 WITH 8 MM MOTION ON F/E FILMS. THERE IS SPONDYLOSIS FROM L4-S1 WITH DISC COLLAPSE, HEIGHT LOSS, FACET ARTHROSIS THAT IS SEVERE. THERE IS SEVERE DEGENERATIVE CHAGNES FROM L3-S1 OVERALL. NO ACUTE FRACTURTES NOTED. PARS ELONGATION WITHOUT DEFINITIVE PARS DEFECT, CT WOULD BETTER QUANTIFY. NO LESIONS. MRI Date: 08/04/24 Location: [facility] Region: Lumbar Contrast: N IMAGES ARE REVIEWED WITH THE PATIENT IN OFFICE AND DEMONSTRATE THE FOLLOWING: FINDINGS: SIMILAR FINDINGS WITH GRADE I-II UNSTABLE SPONDYLOLISTHESIS L4-5 WHICH IS PARTIALLY REDUCED ON THIS SUPINE FILM. THERE IS SEVERE DEGENERATIVE COLLAPSE OF L4-S1 AND OVERALL FROM L3-S1 WITH FLATTENED LORDOSIS SECONDARY TO THE COLLAPSE, SEVERE FACET ARTHROSIS WITH HYPERTROPHY, BOGGY FACETS AND LIGAMENTAL HYPERTROPHY CAUSING CENTRAL AND LATERAL RECESS STENOSIS THAT IS SEVERE. AT L4-S1 THERE IS LIGAMENTAL AND BONY STENOSIS CAUSING SEVERE CENTRAL ENCROACHMENT ALONG WITH VERTEBRAL SUBLUXATION CAUINSING SEVERE CENTRAL AND FORAMINAL STENOSIS. NO ACUTE FRACTURES OR LESIONS NOTED AT THIS TIME. On physical exam, Ms. Louise demonstrates: Patient reports pain across her lumbar region that radiates into the bilateral lower extremities, associated with numbness and tingling. Patient states her pain is increased with prolonged walking, sitting, and bending. She states she has been having bladder incontinence for over 1 year. Patient is unable to stand up straight and walks slightly bent over. She has previously trialed 3 ELVA with no relief. Patient has also trialed physical therapy with no improvement to her symptoms. She is currently taking Azle, Gabapentin, Tylenol, and Ibuprofen without resolution of her symptoms. I have explained to the patient that as their condition progresses it will cause further neurological deficits and eventual paralysis. Based on the patients imaging, physical exam, and the rapid progression and disabling nature of their symptoms, at this time I recommend surgery in the form of a: L4-S1 NC TLIF. I discussed the risk and benefits of this procedure at length with Ms. Louise. The patient agreed to considered pursuing the procedure abovementioned. Prior to surgery, she should follow up with her PCP (Cardio, ID, IM etc) for clearance. Questions were invited and answered, and the patient wishes to pro ceed as outlined below. Currently, I am recommendin.L4-S1 POSTEROLATERAL AND INTERBODY FUSION, MINIMALLY INVASIVE Description of Procedure: L4-S1 MIS PLIBF, NELL (free hand) The patient was seen and examined in the preoperative area. All preoperative protocols were followed. Informed consent was obtained, risks and benefits of the procedure were discussed at length. Risks including bleeding infection damage to the surrounding tissue and risk of reoperation were discussed with the patient. Risk of anesthesia up to and including was discussed with the patient. These are outlined in the risk review. They were willing to accept these risks and all the risks of surgery. The patient was given a weight-based dose of antibiotics in the form of 2 g Ancef. The patient was seen and evaluated by the anesthesia team who deemed them fit for surgery. The site was marked, the patient was willing to proceed with the procedure. The patient was transferred to the operative suite by the Department of anesthesia. They were then drifted off to sleep by the department anesthesia and GETA was performed. The patient tolerated this well. Gabriel catheter was placed by nursing staff, a-traumatically. Once confirmation of lines and ventilation the patient was transferred to a prone Joe table very carefully. All bony prominences including wrists, elbows, axilla, chest, hips, and thighs, and feet were padded very well. Special attention was paid to the genitalia, and these were padded accordingly. SCDs were placed on bilateral lower extremities and were connected. Arms were well padded and placed on arm boards up and out in the 90/90 position. Once in position, again we confirmed good ventilation capabilities and that lines were running appropriately. The patients Lumbar spine was then exposed. 1010s were placed outlining the incision site. Standard alcohol was used to clean the incision site and allowed to dry. C-arm was used to needle localize the pedicles at L4-S1 and bio-arturo the patient and confirm level for incision which was marked with a skin marker. Operative briefing was performed with all teams and everyone in agreement to proceed. The patient was then prepped and draped in a normal sterile fashion. Timeout was then performed, and all parties agreed with the procedure to be performed. Biplanar fluoroscopy was then used to localize and plan skin incisions. Paramedian incisions were made. High speed neptali was then used under biplanar fluoroscopy to create a starting point for pedicle screws. Jamshidi was then introduced into this airplane pilot supervisor hole and advanced on AP till it was group home into the pedicle. Checking on lateral imaging then confirming to be at the back of the body. The Jamshidi was then advanced into the body. Wire was then placed and advanced and the Jamshidi removed. This was repeated bilaterally from L4-S1. Then, the neptali was used to decorticate the TPs PL and the facet joints. Wires were then visualized on AP and Lateral and were in good position. Right sided screws were then placed over wires removing the wire once the screw was at the back of the body and advancing to optimal position and purchase. Once screws were placed they were confirmed to be in good position using AP and Lateral fluoroscopy. Screws were tested and all tested above 20 mA. We then proceeded to decompression and cage placement. Attention was then turned to inter-body fusion at L5-S1. There was exuberant scar and osteophyte formation, deformity due to severe facet arthrosis, facet cysts, and overgrowth at this level. Dilators were placed using biplanar fluoroscopy. Sequential dilation was done for the tubular retractor system using navigation and Xray. The tube was placed and secured into position with a table arm. A microscope was then brought in for visualization. Laminectomy, complete facetectomy and foraminotomy performed at L5-S1 using a high speed neptali and Kerrison rongeur. The ligamentum was removed and the dural sac decompressed. Exiting and traversing roots visualized and decompressed. Neural elements were then protected, and disc space accessed with an osteotome. Sequential shaving then done under lateral imaging and complete discectomy performed using shady, pituitary and curette. Once good bleeding endplates accomplished and good height latter day with trials, a combination of autograft, allograft and synthetic placed anterior in the disc space. The cage was then selected and impacted into place under lateral imaging restoring height, lordosis and alignment. The cage was backfilled with bone graft through a funnel. The operation shift supervisor was removed and the area inspected. Good cage placement, stable cage and no injuries. The area was irrigated copiously, and meticulous hemostasis achieved. The tubular retractor was then removed under direct visualization and attention turned to L4-5. Attention was then turned to interbody fusion at L4-5 and osteotomy for deformity correction. Again the tubular retractor was placed as described above. Laminectomy, complete facetectomy and foraminotomy performed at L4-5 using high speed neptali and Kerrison rongeur. The ligamentum was removed and the dural sac decompressed. Exiting and traversing roots visualized and decompressed. Neural elements were then protected, and disc space accessed with an osteotome. Intradiscal, 3 column osteotomy, was performed under fluoroscopic guidance using an osteotome to remove the entire disc and for deformity correction. This level was extremely sclerotic and difficult to mobilize, but once osteotomy was done there was good mobilization and height latter day had started. Sequential shaving then done under lateral imaging and complete discectomy performed using shady, pituitary and curette. Once good bleeding endplates accomplished and good height latter day with trials, a combination of autograft, allograft and synthetic placed anterior in the disc space. The cage was then selected and impacted into place under lateral imaging restoring height, lordosis and alignment. The cage was backfilled with bone graft through a funnel. The operation shift supervisor was removed and the area inspected. Good cage placement, stable cage and no injuries. The area was irrigated copiously, and meticulous hemostasis achieved. The wound and disc spaces were irrigated and meticulous hemostasis achieved. Rods were then sized and selected and placed subfacially into S1 screws b/l. Set screws locked these in place and then sequentially reduced into L4 and L5 b/l for alignment latter day. This was accomplished. Set screws were then all placed and finally tightened. The wound was irrigated copiously with NSS. Autograft and MagnatOs then placed in the posterolateral gutters and impacted into place. Final images confirmed good placement of hardware and good reduction of listhesis as well as latter day of height and lordosis. Fascia was then closed with 0 Vicryl; Deep subq closed with 0 Vicryl; Superficial subq closed with 2-0 Vicryl and skin with óscar. Wound edges approximated very well. The wound was then cleaned with alcohol and dried. Wounds dressed with adaptic, 4x4 and tegaderm. The patient was then transferred off the table back to their hospital bed a- traumatically. They were extubated by the department of anesthesia. They were then transferred to PACU in stable condition having tolerated the procedure with no complications.
[2024-10-24] MEDS: CYCLOBENZAPRINE 5 MG TAB PO PRN (19:44)
[2024-10-24] MEDS: HYDROmorphone 1 MG/ML 1 ML SYRINGE IVP PRN (19:44)
[2024-10-24] MEDS: MONTELUKAST 10 MG TAB PO SCH (21:11)
[2024-10-24] MEDS: busPIRone HCl 5 MG TAB PO SCH (21:11)
[2024-10-24] MEDS: HYDROcodone/APAP 10-325MG 1 EACH TAB PO PRN (21:11)
[2024-10-24] MEDS: PANTOPRAZOLE 40 MG TABLET PO SCH (21:11)
[2024-10-24] MEDS: DULoxetine HCL 60 MG CAPSULE.DR PO SCH (21:11)
[2024-10-24 21:36] LABS: Glucose,Whole Blood 162 mg/dL (70-110)
[2024-10-25] MEDS: SENNOSIDES-DOCUSATE SODIUM 1 EACH TAB PO PRN (03:39)
[2024-10-25 06:34] LABS: Glucose,Whole Blood 117 mg/dL (70-110)
[2024-10-25] MEDS: LOSARTAN-HCTZ 50-12.5 MG 1 EACH TAB PO SCH (07:47)
[2024-10-25] MEDS: FERROUS SULFATE ORAL ELIXIR 300 MG/5 ML CUP PO SCH (07:47)
[2024-10-25] MEDS: MULTIVITAMINS, THERA 1 EACH TAB PO SCH (07:48)
[2024-10-25] MEDS ORDERED: oxyCODONE-APAP 7.5-325MG 1 EACH TAB PO PRN (08:45)
[2024-10-25] MEDS ORDERED: HYDROcodone/APAP 10-325MG 1 EACH TAB PO PRN (08:46)
--- NOTE | 2024-10-25 08:55 | P.PN ---
Subjective Progress Note Date: 10/25/24 Principal diagnosis: 1. L4-5 GRADE 2 SPONDYLOLISTHESIS, UNSTABLE 2. L5-S1 GRADE 1 SPONDYLOLISTHESIS UNSTABLE 3. 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 LOW BACK PAIN 5. LE WEAKNESS WITH PARESTHESIA Patient was seen at bedside this morning lying in; position with Gabriel/catheter in place. Dressings are in place over lumbar spine. Patient states she has been a lot of pain this morning and has not been able to find a comfortable position in bed. She states prior to surgery she was taking [place] 7.5's at home prescribed from Dr. Calabrese. Patient states she is looking forward to working with PT/OT later today. Patient is considering the option of potentially looking at going to rehab when she is discharged from the hospital. Patient sta cyndi most of the pain is in the low back at this time. Patient denies any other significant issues at this time. Objective - Vital Signs Vital signs: Vital Signs Temp 97.8 F 10/25/24 07:31 Pulse 81 10/25/24 07:31 Resp 18 10/25/24 07:31 BP 147/73 10/25/24 07:31 Pulse Ox 96 10/25/24 07:31 FiO2 Intake & Output 10/24/24 10/25/24 10/25/24 18:59 06:59 18:59 Intake Total 1800 Output Total 910 1000 Balance 890 -1000 Weight 121 kg Intake: IV 1800 Output: Urine 810 1000 Estimated Blood Loss 100 Other: Voiding Method Indwelling Catheter Indwelling Catheter Indwelling Catheter - Exam Inspection: Dressing clean, dry, intact over lumbar spine on exam. Negative for any active drainage. Negative for any significant ecchymosis/erythema. Positive for some mild swelling diffusely throughout the lumbar spine near i ncisions. Sensation: Equal, symmetric, bilat intact throughout the upper and lower extremities on exam. Palpation: Moderate tenderness to patient diffusely throughout the lumbar spine incisions on the exam. Nontender to palpation throughout rest of exam. Range of motion: Patient does have limited range of motion the bilateral lower extremities on exam secondary referred stiffness and pain to the low back. She is able to flex and extend bilateral knees while resting in bed. Patient does have good range of motion in dorsi and plantarflexion of the ankles bilaterally. Full range of motion throughout bilateral upper extremities on exam. Motor: 5/5 in all major motor groups in bilateral upper extremities and left lower extremity exam. 4/5 in all major motor groups in right lower extremity on exam. Neurovascular: DP pulses palpable bilaterally. Cap refill under 3 seconds in digits of upper extremities. Radial pulse intact, 2+ bilaterally. Special test: Negative Marce bilaterally. Negative clonus bilaterally. Negative Lizzette bilaterally. - Labs CBC & Chem 7: 10/24/24 08:55 10/24/24 08:55 Labs: Abnormal Lab Results - Last 24 Hours (Table) 10/24/24 10/24/24 10/24/24 Range/Units 08:42 08:55 08:55 Hgb 10.1 L (11.4-16.0) gm/dL Hct 30.9 L (34.0-46.0) % BUN 19 H (7-17) mg/dL Glucose 141 H (74-99) mg/dL POC Glucose (mg/dL) 144 H (70-110) mg/dL 10/24/24 10/24/24 10/25/24 Range/Units 16:33 21:34 06:33 Hgb (11.4-16.0) gm/dL Hct (34.0-46.0) % BUN (7-17) mg/dL Glucose (74-99) mg/dL POC Glucose (mg/dL) 199 H 162 H 117 H (70-110) mg/dL Assessment and Plan Assessment: 1. L4-5 GRADE 2 SPONDYLOLISTHESIS, UNSTABLE 2. L5-S1 GRADE 1 SPONDYLOLISTHESIS UNSTABLE 3. 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 LOW BACK PAIN 5. LE WEAKNESS WITH PARESTHESIA Postop day 1 status post L4-S1 MIS posterolateral interbody fusion Plan: 1. L4-5 GRADE 2 SPONDYLOLISTHESIS, UNSTABLE; L5-S1 GRADE 1 SPONDYLOLISTHESIS UNSTABLE; LUMBAR AND LUMBOSACRAL SPONDYLOSIS WITH STENOSIS AND RADICULOPATHY; LOW BACK PAIN; LE WEAKNESS WITH PARESTHESIA - L4-S1 MIS posterolateral interbody fusion surgery performed yesterday, 10/24/2024. Patient stable at bedside this morning with dressing in place over the lumbar spine. We will increase his pain medications. Add Percocet 7.5 mg / 325 mg every 6 hours for pain scale 710. Gabriel/catheter currently in place. Weightbearing as tolerated with walker as needed. PT/OT on. Discharge planning pending. 2. Prescient medical management 3. Pain management -Percocet; [place]; gabapentin; Flexeril 4. DVT prophylaxis -mechanical 5. GI prophylaxis -senna; MiraLAX 6. PT/OT -weightbearing as tolerated with walker 7. Encourage incentive spirometer use 8. Discharge planning -pending Time with Patient: Less than 30
[2024-10-25 09:28] LABS: Basophils # (A) 0.01 X 10*3/uL (0.00-0.10); Basophils % (A) 0.1 %; Eosinophils # (A) 0.02 X 10*3/uL (0.04-0.35); Eosinophils % (A) 0.2 %; HCT 27.7 % (37.2-46.3); HGB 8.5 g/dL (12.0-15.0); Lymphocytes # (A) 1.71 X 10*3/uL (0.90-5.00); Lymphocytes % (A) 13.7 %; MCH 25.8 pg (27.0-32.0); MCHC 30.7 g/dL (32.0-37.0); MCV 84.2 FL (80.0-97.0); Mean Platelet Volume 10.1 FL (9.5-12.2); Monocytes # (A) 1.08 X 10*3/uL (0.20-1.00); Monocytes % (A) 8.7 %; NRBC Per 100 WBC 0 X 10*3/uL (0.00-0.01); Neutrophils # (A) 9.58 X 10*3/uL (1.80-7.70); Neutrophils % (A) 76.9 %; Platelet Count 342 X 10*3/uL (140-440); RBC 3.29 X 10*6/uL (4.10-5.20); RDW 15.6 % (11.5-14.5); WBC 12.45 X 10*3/uL (4.50-10.00)
[2024-10-25 09:29] LABS: Blood Urea Nitrogen 12.6 mg/dL (9.0-27.0); Glucose 122 mg/dL (70-110)
[2024-10-25 09:30] LABS: Calcium 8.8 mg/dL (8.7-10.3); Carbon Dioxide 28.5 mmol/L (21.6-31.8); Chloride 98 mmol/L (96-109); Sodium 138 mmol/L (135-145)
[2024-10-25] MEDS ORDERED: oxyCODONE-APAP 5-325MG 1 EACH TAB PO PRN (09:44)
[2024-10-25] MEDS: CYCLOBENZAPRINE 10 MG TAB PO SCH (10:34)
[2024-10-25] MEDS: oxyCODONE-APAP 7.5-325MG 1 EACH TAB PO SCH (10:34)
[2024-10-25] MEDS: CALCIUM CARBONATE 500 MG CHEWABLE PO PRN (10:43)
[2024-10-25] MEDS: KETOROLAC 15 MG/ML 1 ML VIAL IVP SCH (10:46)
[2024-10-25 11:47] LABS: Glucose,Whole Blood 238 mg/dL (70-110)
[2024-10-25 16:36] LABS: Glucose,Whole Blood 110 mg/dL (70-110)
--- NOTE | 2024-10-25 17:58 | PN ---
PROGRESS NOTE DATE OF SERVICE: 10/25/2024 SUBJECTIVE: This is a 64-year-old woman, who was admitted after lumbar surgery. She is improving. No chest pain. No palpitations. No fever. OBJECTIVE: VITAL SIGNS: Pulse 81, blood pressure 140/70, respirations 18. CHEST: Clear to auscultation. CARDIOVASCULAR: S1, S2. ABDOMEN: Soft. BACK: Status post surgery. LABORATORY DATA: WBC 12.45. ASSESSMENT: 1. Status post back surgery. 2. Diabetes mellitus type 2. 3. Elevated WBC. 4. Asthma. 5. Hypertension. 6. Multiple complex medical issues. RECOMMENDATIONS AND DISCUSSION: I recommend to continue current management and continue symptomatic treatment. Incentive spirometry. Monitor blood sugars closely, insulin scale. We will follow the patient closely. MARY / RAVENN: [id number] /
[2024-10-25 21:00] LABS: Glucose,Whole Blood 124 mg/dL (70-110)
[2024-10-26 06:28] LABS: Glucose,Whole Blood 141 mg/dL (70-110)
--- NOTE | 2024-10-26 08:22 | CONS ---
CONSULTATION REASON FOR CONSULTATION: Advice regarding diabetes mellitus and other medical issues, requested by Orthopedic Surgery. HISTORY OF PRESENT ILLNESS: This is a 64-year-old woman with a past medical history of asthma, diabetes mellitus type 2, and multiple other medical problems, underwent surgery for severe DJD, L4-S1 posterolateral interbody fusion. There is no history of any fever, rigors, or chills. No history of headache, loss of consciousness, or seizures. PAST MEDICAL HISTORY: Reviewed include asthma, diabetes mellitus, fibromyalgia. Rest of the history and rest of the chart is also reviewed. HOME MEDICATIONS: Metformin. Dose and rest of medications reviewed. ALLERGIES: Adhesives. Rest of allergies reviewed. FAMILY HISTORY: No history of heart disease or strokes in the family. SOCIAL HISTORY: No history of smoking or alcohol. REVIEW OF SYSTEMS: Fourteen-point review of systems is negative except as mentioned earlier. PHYSICAL EXAMINATION: VITAL SIGNS: Pulse is 87, blood pressure 130/64, respirations 16. CHEST: Clear to auscultation. CARDIOVASCULAR: S1, S2. ABDOMEN: Soft. BACK: Status post surgery. NERVOUS SYSTEM: Nonfocal. LABORATORY DATA: Hemoglobin 10.2. Rest of the labs are noted. ASSESSMENT: 1. Status post back surgery, L4-S1 posterolateral interbody fusion. 2. Diabetes mellitus, type 2. 3. Asthma. 4. Fibromyalgia. 5. Hypertension. 6. History of degenerative disk disease. 7. Supraventricular tachycardia history. RECOMMENDATIONS AND DISCUSSION: This is a 64-year-old woman, who presented with multiple medical issues. At this time, I recommend to continue current medications. Resume the home medications. Monitor blood sugars closely. DVT prophylaxis. We will follow the patient closely. Incentive spirometry. The patient may be asked to follow up with primary physician closely after discharge. MMODL / IJN: [id number] /
--- NOTE | 2024-10-26 08:27 | P.PN ---
Subjective Progress Note Date: 10/26/24 Patient seen and examined this morning she is laying in bed she is doing okay. She is been up to the chair but she is in a lot of pain. She is better pain control and other medications of been optimized. She denies fevers chills shortness breath or chest pain she denies any perineal numbness or tingling at this time. She states that she has been able to void appropriately has not had a bowel movement yet. Objective - Vital Signs Vital signs: Vital Signs Temp 98.8 F 10/26/24 07:00 Pulse 81 10/26/24 07:00 Resp 18 10/26/24 07:00 BP 112/47 10/26/24 07:00 Pulse Ox 93 L 10/26/24 07:00 FiO2 Intake & Output 10/25/24 10/26/24 10/26/24 18:59 06:59 18:59 Output Total 950 700 Balance -950 -700 Output: Urine 950 700 Other: Voiding Method Indwelling Catheter Indwelling Catheter # Voids 0 - Exam PHYSICAL EXAMINATION: Vitals: Stable at this time General: Awake, alert, appropriate for age, in no acute distress. HEENT: No unusual neck masses around region of lateral neck triangle, thyroid, supraclavicular groove. Extremities: Skin warm and dry without no acute lesions, coloration, temperature, skin intact, no tenderness or erythema. Integument: Hairy patches: Absent Dorsal skin dimples: Absent Cafe au lait spots: Absent Surgical incisions: Clean and dryNo erythema or ecchymosis edema and no drainage Palpation: Please see Pain drawing on Intake sheet for further detail. (Tenderness = T, Nontender = NT, Swelling = S, Ecchymosis = E) Findings on Midline and paraspinal palpation and percussion: Cervical: NT Thoracic: NT Lumbar:Tenderness around the incision no fluctuance Sacral: NT VASCULAR STATUS : Wrist Pulses: [2/4 bilateral radial and ulnar] Pedal Pulses: [2/4 bilateral DP and PT] Color: [Normal] Edema: [None] NEUROLOGIC EXAMINATION: Mental Status: Awake and alert, fully oriented, with normal attention, concentration and memory, and fluent, appropriate speech. Cranial Nerves: I: Olfactory not tested. II: Visual acuity normal, no visual field deficit noted with confrontation. III,IV: Normal pupillary reflexes & intact extraocular movements without nystagmus. V,: Intact symmetrical facial sensation. VII: Intact symmetrical facial motor movement VIII: Hearing intact. IX,X: Intact gag, swallow, & normal voice. XI: Sternocleidomastoid, trapezius function intact. XII: Tongue midline with normal movements. Special Tests: L'hermitte's Sign: Absent Spurling'Sign: Absent Bilateral Cubital percussion test: Absent Bilateral Jamey-Tinel sign - Carpal region: Absent Bilateral Straight Leg Raising: Absent Bilateral Motor Exam (0-5/5, N/T) STRENGTH UPPER EXTREMITY [5]/5 in all major muscle groups of the UE b/l LOWER EXTREMITY 4+/5 in all major muscle groups of the LE b/l Normal postoperative deconditioning no focal deficits REFLEXES Upper Extremity: RIGHT - [2]/4 LEFT - [2]/4 Lower Extremity: RIGHT - [2]/4 LEFT - [2]/4 Pathological Reflexes Thacker's: RIGHT - [Absent] LEFT - [Absent] Babinski: RIGHT - [Absent] LEFT - [Absent] Clonus: RIGHT-[None] LEFT- [None] SENSORY Pain and LT sense RIGHT: [Intact C5-T1 and L2-S1] LEFT: [Intact C5-T1 and L2-S1] Dermatomal deficit: [none] Gait and Functional Evaluation: Ambulatory aids:Walker - Labs CBC & Chem 7: 10/25/24 04:24 10/25/24 04:24 Labs: Abnormal Lab Results - Last 24 Hours (Table) 10/25/24 10/25/24 10/25/24 Range/Units 04:24 04:24 04:24 WBC 12.45 H (4.50-10.00) X 10*3/uL RBC 3.29 L (4.10-5.20) X 10*6/uL Hgb 8.5 L (12.0-15.0) g/dL Hct 27.7 L (37.2-46.3) % MCH 25.8 L (27.0-32.0) pg MCHC 30.7 L (32.0-37.0) g/dL RDW 15.6 H (11.5-14.5) % Immature Gran # 0.05 H (0.00-0.04) X 10*3/uL Neutrophils # 9.58 H (1.80-7.70) X 10*3/uL Monocytes # 1.08 H (0.20-1.00) X 10*3/uL Eosinophils # 0.02 L (0.04-0.35) X 10*3/uL BUN/Creatinine Ratio 21.00 H (12.00-20.00) Ratio Glucose 122 H (70-110) mg/dL POC Glucose (mg/dL) (70-110) mg/dL Hemoglobin A1c 6.2 H (<=6.0) % 10/25/24 10/25/24 10/26/24 Range/Units 11:46 20:54 06:26 WBC (4.50-10.00) X 10*3/uL RBC (4.10-5.20) X 10*6/uL Hgb (12.0-15.0) g/dL Hct (37.2-46.3) % MCH (27.0-32.0) pg MCHC (32.0-37.0) g/dL RDW (11.5-14.5) % Immature Gran # (0.00-0.04) X 10*3/uL Neutrophils # (1.80-7.70) X 10*3/uL Monocytes # (0.20-1.00) X 10*3/uL Eosinophils # (0.04-0.35) X 10*3/uL BUN/Creatinine Ratio (12.00-20.00) Ratio Glucose (70-110) mg/dL POC Glucose (mg/dL) 238 H 124 H 141 H (70-110) mg/dL Hemoglobin A1c (<=6.0) % Assessment and Plan Assessment: Postop day 2 L4 to S1 posterior lateral interbody fusion minimally invasive low back pain obesity Plan: -Appreciate hematology oncology consultant and team management. -Activity: Ambulate QID, OOB all meals, up and about, limit lifting bending twisting to less than 5 lbs. Use walker or cane if needed for stability. -Daily PT/OT, increase ambulation strength and balance. -[Brace when up and about, not needed in bed or chair] -Pain control: [Adequate at this time] -Meds: [reviewed] -GI ppx: senna, Miralax -DVT PPX: Aspirin 81 mg by mouth daily, mechanical -Hygiene: Shower today. Maintain dressing clean and dry. Meticulous cleaning after BMs away from incision site -Encourage IS 10x/hr -Dispo: Anticipate discharge home versus [facility] 1-2 days
[2024-10-26 11:36] LABS: Glucose,Whole Blood 130 mg/dL (70-110)
[2024-10-26 16:31] LABS: Glucose,Whole Blood 151 mg/dL (70-110)
[2024-10-26 20:05] LABS: Glucose,Whole Blood 118 mg/dL (70-110)
--- NOTE | 2024-10-27 00:40 | PN ---
PROGRESS NOTE DATE OF SERVICE: 10/26/2024 SUBJECTIVE: This is a 64-year-old woman, who was admitted after back surgery. She is being closely monitored. No chest pain. No palpitation. She is complaining of back pain. OBJECTIVE: VITAL SIGNS: Pulse 81, blood pressure 120/47, respirations 18. CHEST: Clear to auscultation. ABDOMEN: Soft. BACK: Status post surgery. NERVOUS SYSTEM: Nonfocal. LABORATORY DATA: Glucose 141, 130. ASSESSMENT: 1. Status post back surgery. 2. Diabetes mellitus, type 2. 3. Elevated WBC, possibly reactive. 4. Asthma. 5. Hypertension. 6. Multiple complex medical issues. RECOMMENDATIONS: Recommend to continue current management and continue symptomatic treatment. Continue incentive spirometry. Monitor blood sugars closely. Further recommendations to follow. MMODL / IJN: [id number] /
[2024-10-27 07:00] LABS: Glucose,Whole Blood 134 mg/dL (70-110)
[2024-10-27 11:11] LABS: Glucose,Whole Blood 151 mg/dL (70-110)
--- NOTE | 2024-10-27 15:52 | P.PN ---
Subjective Progress Note Date: 10/27/24 Principal diagnosis: 1. L4-5 GRADE 2 SPONDYLOLISTHESIS, UNSTABLE 2. L5-S1 GRADE 1 SPONDYLOLISTHESIS UNSTABLE 3. 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 LOW BACK PAIN 5. LE WEAKNESS WITH PARESTHESIA Patient was seen at bedside this morning sitting up in chair with dressing present over lumbar spine. Patient does note some improvement pain however, she still rates her pain a 7 out of 10. Patient notes she has urinated since Gabriel/catheter was removed. Patient says she is looking forward to working with therapy later this morning. Patient did discuss with case management manager yesterday the possibility of going to rehab upon discharge from the hospital, however, after discussing options with Dr. Connelly and I at bedside over the past couple days she thinks going home will be a better option for her. Patient states she does note improvement in some symptoms since surgery was performed. She does note less numbness in the lower extremities. Patient denies any other orthopedic complaints at this time. Objective - Vital Signs Vital signs: Vital Signs Temp 98.5 F 10/27/24 07:00 Pulse 73 10/27/24 07:00 Resp 17 10/27/24 07:00 BP 128/64 10/27/24 07:00 Pulse Ox 97 10/27/24 07:00 FiO2 Intake & Output 10/26/24 10/27/24 10/27/24 18:59 06:59 18:59 Intake Total 1080 Output Total 550 800 200 Balance -550 280 -200 Intake: Oral 1080 Output: Urine 550 800 200 Other: Voiding Method Indwelling Catheter Indwelling Catheter Toilet - Exam Inspection: Dressing clean, dry, intact over lumbar spine on exam. Negative for any active drainage. Negative for any significant ecchymosis/erythema. Positive for some mild swelling diffusely throughout the lumbar spine near in cisions. Dressing taken down over lumbar spine. [place] appear to be well aligned and intact. Minimal spotting on the dressing. New dressing placed over incisions over spine. Sensation: Equal, symmetric, bilat intact throughout the upper and lower extremities on exam. Palpation: Moderate tenderness to patient diffusely throughout the lumbar spine incisions on the exam. Nontender to palpation throughout rest of exam. Range of motion: Patient does have limited range of motion the bilateral lower extremities on exam secondary referred stiffness and pain to the low back. She is able to flex and extend bilateral knees while resting in bed. Patient does have good range of motion in dorsi and plantarflexion of the ankles bilaterally. Full range of motion throughout bilateral upper extremities on exam. Motor: 5/5 in all major motor groups in bilateral upper extremities and left lower extremity exam. 4/5 in all major motor groups in right lower extremity on exam. Neurovascular: DP pulses palpable bilaterally. Cap refill under 3 seconds in digits of upper extremities. Radial pulse intact, 2+ bilaterally. Special test: Negative Marce bilaterally. Negative clonus bilaterally. Negative Lizzette bilaterally. - Labs CBC & Chem 7: 10/25/24 04:24 10/25/24 04:24 Labs: Abnormal Lab Results - Last 24 Hours (Table) 10/26/24 10/26/24 10/27/24 Range/Units 16:29 20:03 06:59 POC Glucose (mg/dL) 151 H 118 H 134 H (70-110) mg/dL 10/27/24 Range/Units 11:10 POC Glucose (mg/dL) 151 H (70-110) mg/dL Assessment and Plan Assessment: 1. L4-5 GRADE 2 SPONDYLOLISTHESIS, UNSTABLE 2. L5-S1 GRADE 1 SPONDYLOLISTHESIS UNSTABLE 3. 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 LOW BACK PAIN 5. LE WEAKNESS WITH PARESTHESIA Postop day 3 status post L4-S1 MIS posterolateral interbody fusion Plan: 1. L4-5 GRADE 2 SPONDYLOLISTHESIS, UNSTABLE; L5-S1 GRADE 1 SPONDYLOLISTHESIS UNSTABLE; LUMBAR AND LUMBOSACRAL SPONDYLOSIS WITH STENOSIS AND RADICULOPATHY; LOW BACK PAIN; LE WEAKNESS WITH PARESTHESIA - L4-S1 MIS posterolateral interbody fusion surgery performed 10/24/2024. Patient stable at bedside this morning with dressing in place over the lumbar spine. Dressing changed at bedside this morning. Incision appears to be healing well. Percocet 7.5 mg / 325 mg every 6 hours for pain scale 710. Weightbearing as tolerated with walker as needed. PT/OT on. Plan for discharge home tomorrow with home care. 2. Prescient medical management 3. Pain management -Percocet; [place]; gabapentin; Flexeril 4. DVT prophylaxis -mechanical 5. GI prophylaxis -senna; MiraLAX 6. PT/OT -weightbearing as tolerated with walker 7. Encourage incentive spirometer use 8. Discharge planning -plan for discharge home tomorrow with home care. Time with Patient: Less than 30
[2024-10-27 16:21] LABS: Glucose,Whole Blood 126 mg/dL (70-110)
[2024-10-27 21:07] LABS: Glucose,Whole Blood 170 mg/dL (70-110)
--- NOTE | 2024-10-28 03:13 | P.PN ---
Subjective Progress Note Date: 10/27/24 This is a pleasant 64-year-old female who was recently admitted under orthopedic services for significant spondylolisthesis with lumbar and lumbosacral spondylosis with radiculopathy and is status post L4-S1 posterior lateral interbody fusion. Patient reports she continues to have significant pain and discomfort although slightly improved from yesterday. Patient is significantly weak and would like to go to ECF currently awaiting updated PT/OT therapy notes and case management following awaiting insurance authorization. Patient is afebrile with no reports of chest pain or shortness of breath and patient has been tolerating diet. Review of systems: Constitutional: No reports of fatigue, fever, or chills Cardiovascular: No reports of chest pain or palpitations Respiratory: No reports of shortness of breath or cough GI: No reports of nausea, no reports of vomiting, no diarrhea : No reports of dysuria or retention Neurovascular: reports of generalized weakness, continued back pain All medications have been reviewed PHYSICAL EXAMINATION: GENERAL: The patient is alert and oriented x4, Well developed, well nourished. Morbidly obese HEENT: Pupils are round and equally reacting to light. EOMI. no scleral icterus. No conjunctival pallor. Normocephalic, atraumatic. No pharyngeal erythema. No thyromegaly. CARDIOVASCULAR: S1 and S2 muffled PULMONARY: diminished breath sounds bilaterally with no wheezing or rhonchi noted. ABDOMEN: soft. Nontender on exam. obese. non-distended, normoactive bowel sounds. No palpable organomegaly. MUSCULOSKELETAL: No joint swelling or deformity. EXTREMITIES: No cyanosis, clubbing, or pedal edema. NEUROLOGICAL: Gross neurological examination did not reveal any focal deficits. Diffuse weakness SKIN: No rashes. Assessment: Status post L4-S1 posterior lateral interbody fusion Diabetes mellitus, type II Elevated WBC, likely reactive Asthma, not in exacerbation History of hypertension Morbid obesity with a BMI of 47.3 GI prophylaxis DVT prophylaxis Full code Plan: Recommend to continue with current medications and management per orthopedic services. Patient has been seen and evaluated by PT/OT therapy with case management following and working on possible ECF as patient is concerned as she feels she may be unable to take care of her normal ADLs on her own Encourage incentive spirometer use at least 10 times every hour while awake Home medications reviewed and resumed as appropriate Continue monitoring Accu-Cheks before meals and at bedtime and will continue current regimen and adjust insulins as needed Patient is medically stable once cleared by orthopedics for discharge Thank you kindly for this consultation. We will continue to follow during hospitalization. The impression and plan of care has been dictated by Yamileth Mack, nurse practitioner as directed. Dr. Kehinde MD I have performed a history and examination and MDM of this patient, discussed the same with the dictator, and agree with the dictator's assessment and plan as written ,documented as a scribe. Based on total visit time, I have performed more than 50% of the visit. Any additional findings or plans will be noted. Objective - Vital Signs Vital signs: Vital Signs Temp 98.4 F 10/27/24 13:21 Pulse 82 10/27/24 13:21 Resp 20 10/27/24 13:21 BP 112/70 10/27/24 13:21 Pulse Ox 99 10/27/24 13:21 FiO2 Intake & Output 10/26/24 10/27/24 10/27/24 18:59 06:59 18:59 Intake Total 1080 Output Total 550 800 200 Balance -550 280 -200 Intake: Oral 1080 Output: Urine 550 800 200 Other: Voiding Method Indwelling Catheter Indwelling Catheter Toilet # Voids 1 # Bowel Movements 1 - Labs CBC & Chem 7: 10/25/24 04:24 10/25/24 04:24 Labs: Abnormal Lab Results - Last 24 Hours (Table) 10/26/24 10/27/24 10/27/24 Range/Units 20:03 06:59 11:10 POC Glucose (mg/dL) 118 H 134 H 151 H (70-110) mg/dL 10/27/24 Range/Units 16:20 POC Glucose (mg/dL) 126 H (70-110) mg/dL
[2024-10-28 06:46] LABS: Glucose,Whole Blood 125 mg/dL (70-110)
[2024-10-28 09:10] LABS: HCT 25.6 % (37.2-46.3); HGB 7.7 g/dL (12.0-15.0); MCH 25.7 pg (27.0-32.0); MCHC 30.1 g/dL (32.0-37.0); MCV 85.3 FL (80.0-97.0); Mean Platelet Volume 10.2 FL (9.5-12.2); NRBC Per 100 WBC 0 X 10*3/uL (0.00-0.01); Platelet Count 316 X 10*3/uL (140-440); RDW 15.5 % (11.5-14.5); WBC 11.98 X 10*3/uL (4.50-10.00)
[2024-10-28 09:11] LABS: Basophils # (A) 0.02 X 10*3/uL (0.00-0.10); Basophils % (A) 0.2 %; Eosinophils # (A) 0.36 X 10*3/uL (0.04-0.35); Lymphocytes # (A) 1.77 X 10*3/uL (0.90-5.00); Lymphocytes % (A) 14.8 %; Monocytes # (A) 1.04 X 10*3/uL (0.20-1.00); Monocytes % (A) 8.7 %; Neutrophils # (A) 8.75 X 10*3/uL (1.80-7.70)
[2024-10-28 09:41] LABS: Blood Urea Nitrogen 17.7 mg/dL (9.0-27.0); Glucose 122 mg/dL (70-110)
[2024-10-28 09:42] LABS: Calcium 8.5 mg/dL (8.7-10.3); Carbon Dioxide 26.9 mmol/L (21.6-31.8); Chloride 93 mmol/L (96-109); Potassium 3.8 mmol/L (3.5-5.5); Sodium 133 mmol/L (135-145)
[2024-10-28 11:43] LABS: Glucose,Whole Blood 135 mg/dL (70-110)
[2024-10-28] MEDS: FAMOTIDINE 20 MG TAB PO STA (12:16)
[2024-10-28] MEDS: PANTOPRAZOLE 40 MG TABLET PO SCH (12:16)
--- NOTE | 2024-10-28 13:05 | P.PN ---
Subjective Progress Note Date: 10/28/24 Principal diagnosis: 1. L4-5 GRADE 2 SPONDYLOLISTHESIS, UNSTABLE 2. L5-S1 GRADE 1 SPONDYLOLISTHESIS UNSTABLE 3. 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 LOW BACK PAIN 5. LE WEAKNESS WITH PARESTHESIA Patient was seen at bedside this morning lying semirecumbent position with dressing present over lumbar spine. Patient states the pain is currently 8/10. Patient is hoping to stay one more additional night for continued pain control and therapy. Patient hoping to go home tomorrow. Patient states she noticed that she does have a back brace at bedside and has not used one before. PT to come by to help fit patient for brace. Patient states she does note improvement in some symptoms since surgery was performed. She does note less numbness in the lower extremities. Patient denies any other orthopedic complaints at this time. Objective - Vital Signs Vital signs: Vital Signs Temp 99.1 F 10/28/24 06:59 Pulse 77 10/28/24 06:59 Resp 18 10/28/24 10:35 BP 108/70 10/28/24 06:59 Pulse Ox 96 10/28/24 06:59 FiO2 Intake & Output 10/27/24 10/28/24 10/28/24 18:59 06:59 18:59 Intake Total 2260 1380 Output Total 450 Balance -450 2260 1380 Intake: Oral 2260 1380 Output: Urine 450 Other: Voiding Method Toilet Toilet Toilet # Voids 1 4 # Bowel Movements 1 - Exam Inspection: Dressing clean, dry, intact over lumbar spine on exam. Negative for any active drainage. Negative for any significant ecchymosis/erythema. Positive for some mild swelling diffusely throughout the lumbar spine near incisions. Jonathan appear to be well aligned and intact. Minimal spotting on the dressing. Sensation: Equal, symmetric, bilat intact throughout the upper and lower extremities on exam. Palpation: Moderate tenderness to patient diffusely throughout the lumbar spine incisions on the exam. Nontender to palpation throughout rest of exam. Range of motion: Patient does have limited range of motion the bilateral lower extremities on exam secondary referred stiffness and pain to the low back. She is able to flex and extend bilateral knees while resting in bed. Patient does have good range of motion in dorsi and plantarflexion of the ankles bilaterally. Full range of motion throughout bilateral upper extremities on exam. Motor: 5/5 in all major motor groups in bilateral upper extremities and left lower extremity exam. 4/5 in all major motor groups in right lower extremity on exam. Neurovascular: DP pulses palpable bilaterally. Cap refill under 3 seconds in digits of upper extremities. Radial pulse intact, 2+ bilaterally. Special test: Negative Marce bilaterally. Negative clonus bilaterally. Negative Lizzette bilaterally. - Labs CBC & Chem 7: 10/28/24 02:44 10/28/24 02:44 Labs: Abnormal Lab Results - Last 24 Hours (Table) 10/27/24 10/27/24 10/28/24 Range/Units 16:20 21:05 02:44 WBC 11.98 H (4.50-10.00) X 10*3/uL RBC 3.00 L (4.10-5.20) X 10*6/uL Hgb 7.7 L (12.0-15.0) g/dL Hct 25.6 L (37.2-46.3) % MCH 25.7 L (27.0-32.0) pg MCHC 30.1 L (32.0-37.0) g/dL RDW 15.5 H (11.5-14.5) % Neutrophils # 8.75 H (1.80-7.70) X 10*3/uL Monocytes # 1.04 H (0.20-1.00) X 10*3/uL Eosinophils # 0.36 H (0.04-0.35) X 10*3/uL Sodium (135-145) mmol/L Chloride (96-109) mmol/L Anion Gap (4.00-12.00) mmol/L BUN/Creatinine Ratio (12.00-20.00) Ratio Glucose (70-110) mg/dL POC Glucose (mg/dL) 126 H 170 H (70-110) mg/dL Calcium (8.7-10.3) mg/dL 10/28/24 10/28/24 10/28/24 Range/Units 02:44 06:44 11:42 WBC (4.50-10.00) X 10*3/uL RBC (4.10-5.20) X 10*6/uL Hgb (12.0-15.0) g/dL Hct (37.2-46.3) % MCH (27.0-32.0) pg MCHC (32.0-37.0) g/dL RDW (11.5-14.5) % Neutrophils # (1.80-7.70) X 10*3/uL Monocytes # (0.20-1.00) X 10*3/uL Eosinophils # (0.04-0.35) X 10*3/uL Sodium 133 L (135-145) mmol/L Chloride 93 L (96-109) mmol/L Anion Gap 13.10 H (4.00-12.00) mmol/L BUN/Creatinine Ratio 29.50 H (12.00-20.00) Ratio Glucose 122 H (70-110) mg/dL POC Glucose (mg/dL) 125 H 135 H (70-110) mg/dL Calcium 8.5 L (8.7-10.3) mg/dL Assessment and Plan Assessment: 1. L4-5 GRADE 2 SPONDYLOLISTHESIS, UNSTABLE 2. L5-S1 GRADE 1 SPONDYLOLISTHESIS UNSTABLE 3. 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 LOW BACK PAIN 5. LE WEAKNESS WITH PARESTHESIA Postop day 4 status post L4-S1 MIS posterolateral interbody fusion Plan: 1. L4-5 GRADE 2 SPONDYLOLISTHESIS, UNSTABLE; L5-S1 GRADE 1 SPONDYLOLISTHESIS UNSTABLE; LUMBAR AND LUMBOSACRAL SPONDYLOSIS WITH STENOSIS AND RADICULOPATHY; LOW BACK PAIN; LE WEAKNESS WITH PARESTHESIA - L4-S1 MIS posterolateral interb cecilia fusion surgery performed 10/24/2024. Patient stable at bedside this morning with dressing in place over the lumbar spine. Incision appears to be healing well. Percocet 7.5 mg / 325 mg every 6 hours for pain scale 710. Weightbearing as tolerated with walker as needed. PT/OT on. Plan for discharge home tomorrow with home care. 2. Prescient medical management 3. Pain management -Percocet; [place]; gabapentin; Flexeril 4. DVT prophylaxis -mechanical 5. GI prophylaxis -senna; MiraLAX 6. PT/OT -weightbearing as tolerated with walker 7. Encourage incentive spirometer use 8. Discharge planning -plan for discharge home tomorrow with home care. Time with Patient: Less than 30
[2024-10-28] MEDS: MAG HYDROX/AL HYDROX/SIMETH 30 ML CUP PO PRN (15:04)
[2024-10-28 16:42] LABS: Glucose,Whole Blood 132 mg/dL (70-110)
[2024-10-28 20:44] LABS: Glucose,Whole Blood 107 mg/dL (70-110)
[2024-10-29 06:36] LABS: Glucose,Whole Blood 125 mg/dL (70-110)
[2024-10-29 07:14] VITALS: BP 116/64; PULSE 71; RESP 16; TEMP 97.9
--- NOTE | 2024-10-29 07:42 | P.PN ---
Subjective Progress Note Date: 10/28/24 This is a pleasant 64-year-old female who was recently admitted under orthopedic services for significant spondylolisthesis with lumbar and lumbosacral spondylosis with radiculopathy and is status post L4-S1 posterior lateral interbody fusion. Patient reports she continues to have significant pain and discomfort although slightly improved from yesterday. Patient is significantly weak and would like to go to [facility] currently awaiting updated PT/OT therapy notes and case management following awaiting insurance authorization. Patient is afebrile with no reports of chest pain or shortness of breath and patient has been tolerating diet. 10/28/2024 Patient is seen in follow-up today and continues to report lower back pain. Patient awaiting a walker and will provide a prescription on discharge. Patient is afebrile with no reports of chest pain or shortness of breath. Patient has been tolerating diet with no reported nausea or vomiting. Patient per nursing staff staying overnight for continued pain management with probable discharge in 24 hours. Plan is for returning home with home care. Patient is medically stable once cleared by orthopedics Review of systems: Constitutional: No reports of fatigue, fever, or chills Cardiovascular: No reports of chest pain or palpitations Respiratory: No reports of shortness of breath or cough GI: No reports of nausea, no reports of vomiting, no diarrhea : No reports of dysuria or retention Neurovascular: reports of generalized weakness, continued back pain All medications have been reviewed PHYSICAL EXAMINATION: GENERAL: The patient is alert and oriented x4, Well developed, well nourished. Morbidly obese HEENT: Pupils are round and equally reacting to light. EOMI. no scleral icterus. No conjunctival pallor. Normocephalic, atraumatic. No pharyngeal erythema. No thyromegaly. CARDIOVASCULAR: S1 and S2 muffled PULMONARY: diminished breath sounds bilaterally with no wheezing or rhonchi noted. ABDOMEN: soft. Nontender on exam. obese. non-distended, normoactive bowel sounds. No palpable organomegaly. MUSCULOSKELETAL: No joint swelling or deformity. EXTREMITIES: No cyanosis, clubbing, or pedal edema. NEUROLOGICAL: Gross neurological examination did not reveal any focal deficits. Diffuse weakness SKIN: No rashes. Assessment: Status post L4-S1 posterior lateral interbody fusion Diabetes mellitus, type II Elevated WBC, likely reactive Asthma, not in exacerbation History of hypertension Morbid obesity with a BMI of 47.3 GI prophylaxis DVT prophylaxis Full code Plan: Recommend to continue with current medications and management per orthopedic services. Patient has been seen and evaluated by PT/OT therapy with case management following and working on possible ECF as patient is concerned as she feels she may be unable to take care of her normal ADLs on her own. Patient may not qualify for ECF and is arranging for home with home care as well Encourage incentive spirometer use at least 10 times every hour while awake including taking home and continuing to use Home medications reviewed and resumed as appropriate Continue monitoring Accu-Cheks before meals and at bedtime and will continue current regimen and adjust insulins as needed Patient is medically stable once cleared by orthopedics for discharge. Discussing possible discharge on 10/29/2024 Thank you kindly for this consultation. We will continue to follow during hospitalization. The impression and plan of care has been dictated as a scribe by Yamileth Mack, nurse practitioner as directed. Dr. Kehinde MD I have performed a history and examination and MDM of this patient, discussed the same with the dictator, and agree with the dictator's assessment and plan as written ,documented as a scribe. Based on total visit time, I have performed more than 50% of the visit. Any additional findings or plans will be noted. Objective - Vital Signs Vital signs: Vital Signs Temp 99.1 F 10/28/24 06:59 Pulse 77 10/28/24 06:59 Resp 16 10/28/24 06:59 BP 108/70 10/28/24 06:59 Pulse Ox 96 10/28/24 06:59 FiO2 Intake & Output 10/27/24 10/28/24 10/28/24 18:59 06:59 18:59 Intake Total 2260 Output Total 450 Balance -450 2260 Intake: Oral 2260 Output: Urine 450 Other: Voiding Method Toilet Toilet # Voids 1 4 # Bowel Movements 1 - Labs CBC & Chem 7: 10/28/24 02:44 10/28/24 02:44 Labs: Abnormal Lab Results - Last 24 Hours (Table) 10/27/24 10/27/24 10/27/24 Range/Units 11:10 16:20 21:05 POC Glucose (mg/dL) 151 H 126 H 170 H (70-110) mg/dL 10/28/24 Range/Units 06:44 POC Glucose (mg/dL) 125 H (70-110) mg/dL
[2024-10-29 09:48] LABS: Basophils # (A) 0.03 X 10*3/uL (0.00-0.10); Basophils % (A) 0.3 %; Eosinophils # (A) 0.34 X 10*3/uL (0.04-0.35); Eosinophils % (A) 3.5 %; HCT 24.4 % (37.2-46.3); HGB 7.2 g/dL (12.0-15.0); Lymphocytes # (A) 1.43 X 10*3/uL (0.90-5.00); Lymphocytes % (A) 14.7 %; MCH 24.9 pg (27.0-32.0); MCHC 29.5 g/dL (32.0-37.0); MCV 84.4 FL (80.0-97.0); Mean Platelet Volume 9.8 FL (9.5-12.2); Monocytes # (A) 0.86 X 10*3/uL (0.20-1.00); Monocytes % (A) 8.8 %; NRBC Per 100 WBC 0 X 10*3/uL (0.00-0.01); Neutrophils # (A) 7.07 X 10*3/uL (1.80-7.70); Neutrophils % (A) 72.4 %; Platelet Count 337 X 10*3/uL (140-440); RBC 2.89 X 10*6/uL (4.10-5.20); RDW 15.3 % (11.5-14.5); WBC 9.76 X 10*3/uL (4.50-10.00)
[2024-10-29 09:59] LABS: Blood Urea Nitrogen 12.9 mg/dL (9.0-27.0); Calcium 8.4 mg/dL (8.7-10.3); Carbon Dioxide 28.1 mmol/L (21.6-31.8); Chloride 96 mmol/L (96-109); Glucose 130 mg/dL (70-110); Potassium 3.4 mmol/L (3.5-5.5); Sodium 135 mmol/L (135-145)
--- NOTE | 2024-10-29 11:28 | P.DS ---
Providers Date of admission: 10/24/24 07:53 Expected date of discharge: 10/29/24 Attending physician: Noel Connelly DO Consults: 10/24/24 13:30 Consult Physician Routine Consulting Provider: Christina Busby Consult Reason/Comments: medical management s/p L4-S1 MIS PLIF Do you want consulting provider notified?: Yes Primary care physician: Krista Gonsalez [facility] Course: Date of admission: 10/24/2024 Date of discharge: 10/29/2024 Admission diagnosis: 1. L4-5 GRADE 2 SPONDYLOLISTHESIS, UNSTABLE 2. L5-S1 GRADE 1 SPONDYLOLISTHESIS UNSTABLE 3. 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 LOW BACK PAIN 5. LE WEAKNESS WITH PARESTHESIA Postop day 3 status post L4-S1 MIS posterolateral interbody fusion Discharge diagnosis: Same Attending physician: Dr. Connelly Surgical procedures: L4-S1 MIS posterolateral interbody fusion Brief history: Patient is a 64-year-old female with a history of L4-5, L5-S1 spondylolisthesis; lumbar and lumbosacral spondylosis with stenosis and radiculopathy; low back pain; lower extremity weakness. At this point patient has failed conservative treatment measures and has opted to proceed with a elective L4-S1 MIS posterior lateral interbody fusion. Hospital course: Details of patient's surgery can be found in operative report. Patient tolerated the procedure well and was subsequently transported to orthope dic floor. Patient's orthopeidc and medical care was provided daily. Patient had daily laboratory tests performed for evaluation of overall blood counts. Patient had daily physical therapy to include strengthening range of motion as well as education with walker ambulation. Patient was noted to have a relatively uneventful postoperative course. Patient reported satisfactory pain control with oral pain medications by postoperative day 4. Patient showed satisfactory progress with physical therapy. Patient moved steadily through the program and had no difficulty meeting the goals by postoperative day 4. Given patient's otherwise satisfactory course and having met physical therapy goals, plan is to discharge patient home on postoperative day 4. Discharge condition/disposition: Patient will be discharged home in stable condition. Discharge medications: Instructions are given on resumption of patient's normal daily medications per primary care recommendation, in addition patient will be prescribed Percocet; Flexeril; gabapentin; senna; Duricef. Spine Discharge and Recovery Instructions Date of Surgery: 10/24/2024 Diagnosis: 1. L4-5 GRADE 2 SPONDYLOLISTHESIS, UNSTABLE 2. L5-S1 GRADE 1 SPONDYLOLISTHESIS UNSTABLE 3. 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 LOW BACK PAIN 5. LE WEAKNESS WITH PARESTHESIA Procedure: L4-S1 MIS posterolateral interbody fusion Medications: See medication list All medication refills should be obtained through your primary care doctor or your clinic spine surgeon. Please discuss prescription refills at your follow up appointment. Do not call the hospital for medication refills. Dressing: Leave your dressing in place for a total of 5 days post operatively. Then you may remove your dressing and leave open to air. Keep the area clean and if not able to keep area clean, then cover with sterile gauze and tape. Showering: You may shower 3 days after your procedure allowing soap and water to run over incision. Do not scrub. Do not soak. Blot dry. Follow up: Please confirm a follow up appointment with your surgeon 3 weeks post operatively. Please make an appointment to follow up with your PCP in 1-2 weeks after surgery for evaluation '3 phase, 3-week plan' POST OP WEEKS 1-3 1. Lifting/carrying/pushing/pulling limited to less than 5 pounds. 2. Do not sit for longer than 15 minutes at one time. Get up and walk around. Prolonged sitting is NOT advised. If you lay down, see if you can tolerate laying down on you front (belly side) 3. Walk for periods of 15 minutes = 1 mile but no longer; do it multiple times times each day. 4. Ice your low back after activity. POST OP WEEKS 3-6 1. Lifting limited to less than 20 pounds. 2. Do not sit for longer than 30 minutes at a time. Frequently change positions. Use a sit-to stand workstation or take frequent breaks from sitting if you have returned to work. 3. Walk for 30 minutes each day. If possible, do these three or more times a day POST OP WEEKS 6+ At your 6-week appointment we will give you a physical therapy referral to focus on a core stabilization and strengthening program. You should also work on leg & buttock strengthening, hamstring & quadriceps stretching, and continue a low impact aerobic activity program such as swimming, walking, or riding a stationary bicycle. During the initial 6 weeks after your surgery, you are at the highest risk of re-injuring your spine. You should generally avoid BLT's (bending, lifting and twisting combination motions) and follow the above guidelines to reduce the chance of reinjury. You can anticipate post op appointments in our office at approximately 3 weeks and 6 weeks after your surgery. INCISION CARE: If your incision is not draining you do NOT need to cover it with a dressing. Keep your incision clean, dry and intact. In most cases, we apply skin glue, óscar or sutures to the incision at the time of surgery. This will be like a crust or have the appearance of a scab and will fall off in time on its own. The stitches or óscar need to be removed at 3 weeks post op appointment. You may begin to shower 3 days after surgery (this allows the glue to brown well). However, please avoid scrubbing the incision site or peeling off any of the skin glue. This will ensure optimal healing of your incision. Also, during this time avoid soaking the incision area in water - this includes swimming pools, hot tubs or baths. No ointments, lotions or oils on the incision until your surgeon allows. Leave óscar, sutures or glue in place. Neurological dysfunction that comes on suddenly can also be a sign of a stroke. Below some common symptoms of a stroke are listed: B - balance difficulty such as sudden onset walking or leaning to one side - NEW E - eye problem such as sudden double vision or trouble seeing on one side - NEW F - Facial weakness or numbness on one side - NEW A - Arm or leg weakness or numbness on one side - NEW S - Slurred speech or difficulty with word finding - NEW T - Time is BRAIN! Call 911 as soon as you recognize these symptoms Diet: Consume a regular diet rich in vegetables and lean protein such as chicken or fish. You should consume in a ratio of approximately 20% fats|40% carbohydrates|40%protein. Vegetables, sweet potatoes, brown rice or quinoa are examples of good carbohydrates. Chips, white bread, cookies and sweets/sugar are examples of bad carbohydrates. Limit your bad carbs, go wild with good carbs. "Life's Simple 7" Guidelines as per [employer] These will help you reclaim your life after surgery and help desk assistant in your recovery, keeping in mind your restrictions. (1) Get Active. Physical activity can help people lose weight, control high blood pressure and cholesterol, feel emotionally better, and sleep better. (2) Control Cholesterol. Avoid a diet high in saturated fat, trans fat, & cholesterol. Limit whole milk & cream, ice cream, butter, egg yolks, processed meats (like sausage and hot dogs), and fatty meats. Choose healthy foods that are low in saturated fat, trans fat and cholesterol which include: Fruits and vegetables, fiber rich grain products (like whole grain pasta and brown rice), lean meat such as chicken, fish, nuts, seeds, and legumes. (3) Eat Better. Eat small portions. Shop at the grocery with a list and do not stray from it. Tips for a healthy diet include: Limit sodium intake to less than 1500mg daily, avoid prepackaged, processed, and fast foods, choose a diet rich in fruits, vegetables, and whole grain, high fiber foods, and limit saturated & cholesterol in your diet. (4) Manage Blood Pressure. If you have high blood pressure, you should have a cuff at home so that you can check your blood pressure regularly. Be sure you have a good cuff. An arm one is generally better than a wrist one. Bring the cuff to a doctor's appointment to validate that the measurements that your cuff are taking are accurate. Take your blood pressure twice daily when you are sitting down and relaxing. Record the numbers in a log and bring this log with you to your doctors' appointments. (5) Lose Weight if your BMI is above 25. A healthy BMI is between 19-25. To calculate Your BMI, you may use a Standard BMI Calculator on the NIH BMI website: <www.nhlbi.nih.gov/guidelines/obesity/BMI/bmicalc.htm>. Weigh oneself daily. If you are overweight, set a goal to lose weight. A pound a week loss if needed is a good target. (6) Reduce Blood Sugar. Limit foods and liquids with "added sugars." (Added sugars include sucrose, fructose, glucose, maltose, dextrose, high fructose corn syrup, corn syrup, concentrated fruit juice and honey). (7) Stop Smoking. If you smoke, quitting smoking is one of the best things that you can do for your health. Smoking increases your risk of heart attack, stroke, and peripheral vascular disease, which is a build-up of plaque in your arteries. Please discard all the cigarettes and lighters in your house. Have a plan for what you will do when you have the urge to smoke. Direct and second- hand smoke shortens your life as well as the lives of your family, friends and others around you. For your health and the health of those around you, please consider quitting! Proper Bending Body Mechanics: Maintain a wide stance with one foot slightly in front of the other. Keep your back straight. Bend utilizing the strength in your hips and knees. Do not bend at the waist. Maintain the lifted object at your waist-level close to your body. Avoid lifting weight that causes immediately pain or pain anywhere in the body afterwards. Smoking/Nicotine If there was ever one thing that you could do to increase your overall health, decrease your risk of cardiovascular problems by about 39% the second you make the choice, it is to STOP SMOKING. Your body's most instant gratification is the second you stop smoking. We have all heard the studies, read the articles but it is true, smoking is extremely bad for your overall health, and moreover it is detrimental to your bone health. Nicotine, IN ANY FORM, kills bone cells, prevents your body from healing fractures, and significantly prolongs healing after surgery. In spine surgery specifically, it increases your risk of not healing your bones to create a fusion and increases your risk of having a revision surgery due to this up to 60%. I know it is hard. I know it feels impossible. But there are ways. Take control of your life. We are here to help you through it. And when you are ready, ask us and we can direct you to help if you desire. Use the START Plan to Quit Smoking (please visit the Helpguide.org website listed below for more information): S = Set a quit date. Choose a date within the next 2 weeks, so you have enough time to prepare without losing your motivation to quit. If you mainly smoke at work, quit on the weekend, so you have a few days to adjust to the change. T = Tell family, friends, and co-workers that you plan to quit. Let your friends and family in on your plan to quit smoking and tell them you need their support and encouragement to stop. Look for a quit jolanta who wants to stop smoking as well. You can help each other get through the rough times. A = Anticipate and plan for the challenges you'll face while quitting. Most people who begin smoking again do so within the first 3 months. You can help yourself make it through by preparing ahead for common challenges, such as nicotine withdrawal and cigarette cravings. R = Remove cigarettes and other tobacco products from your home, car, and work. Throw away all your cigarettes (no emergency pack!), lighters, ashtrays, and matches. Wash your clothes and freshen up anything that smells like smoke. Shampoo your car, clean your drapes and carpet, and steam your furniture. T = Talk to your doctor about getting help to quit. Your doctor can prescribe medication to help with withdrawal and suggest other alternatives. If you can't see a doctor, you can get many products over the counter at your local pharmacy or grocery store, including the nicotine patch, nicotine lozenges, and nicotine gum. Resources for Quitting Smoking: <https://www.[place].gov/documents/[facility]/Quit_Tobacco_Resources_for_patients _313480_7.pdf> Supplementation: Take recommended dosages of Vitamin D and Calcium to help fortify your bones and help them to heal. See your health maintenance packet for dosages and recomm ended levels. DVT/VTE prophylaxis: You will be given compression stockings from the hospital. Wear these daily for the first two weeks after surgery. You may take them off at night. You may be prescribed a medication to help thin your blood. Take this as directed. If you are not prescribed this medication, early and frequent ambulation has been shown to be the best prophylaxis to deep vein thrombosis and sequelae related to this event. Assessment: 1. L4-5 GRADE 2 SPONDYLOLISTHESIS, UNSTABLE 2. L5-S1 GRADE 1 SPONDYLOLISTHESIS UNSTABLE 3. 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 LOW BACK PAIN 5. LE WEAKNESS WITH PARESTHESIA Procedures: L4-S1 MIS posterolateral interbody fusion Patient Condition at Discharge: Good Plan - Discharge Summary Discharge Rx Participant: Yes New Discharge Prescriptions: New Cyclobenzaprine [Flexeril] 10 mg PO TID #21 tab Gabapentin [Neurontin] 300 mg PO TID #30 cap cefaDROXiL [Duricef] 500 mg PO Q12HR 5 Days #10 cap Sennosides/Docusate Sodium [Senna Plus 8.6-50 mg Softgel] 1 each PO DAILY #20 capsule oxyCODONE HCL/ACETAMINOPHEN [Percocet 7.5-325 mg] 1 tab PO Q6HR PRN #16 tab PRN Reason: Pain No Action Montelukast [Singulair] 10 mg PO HS DULoxetine HCL [Cymbalta] 60 mg PO BID Albuterol Inhaler [Ventolin Hfa Inhaler] 2 puff INHALATION RT-Q4H PRN PRN Reason: Shortness Of Breath HYDROcodone/APAP 7.5-325MG [Charlton 7.5-325] 0.5 - 1 tab PO TID PRN PRN Reason: Pain Ferrous Sulfate Oral Elixir [Feosol Liquid] 300 mg PO DAILY Ibuprofen [Motrin Ib] 200 - 600 mg PO Q6H PRN PRN Reason: Pain Losartan/Hydrochlorothiazide [Hyzaar 100-25 Tablet] 1 tab PO DAILY Fluticasone Propion/Salmeterol [Advair 250-50 Diskus] 1 inh INHALATION DAILY Gabapentin 300 mg PO TID PRN PRN Reason: Pain busPIRone HCL 5 mg PO BID Multivitamins, Thera [Multivitamin (formulary)] 1 tab PO DAILY Omeprazole [PriLOSEC] 20 mg PO HS metFORMIN HCL 1,000 mg PO BID Discharge Medication List Montelukast [Singulair] 10 mg PO HS 11/27/14 [History] DULoxetine HCL [Cymbalta] 60 mg PO BID 08/24/17 [History] Albuterol Inhaler [Ventolin Hfa Inhaler] 2 puff INHALATION RT-Q4H PRN 09/23/20 [History] HYDROcodone/APAP 7.5-325MG [Charlton 7.5-325] 0.5 - 1 tab PO TID PRN 09/23/20 [History] Ferrous Sulfate Oral Elixir [Feosol Liquid] 300 mg PO DAILY 03/06/24 [History] Gabapentin 300 mg PO TID PRN 03/06/24 [History] Ibuprofen [Motrin Ib] 200 - 600 mg PO Q6H PRN 03/06/24 [History] Losartan/Hydrochlorothiazide [Hyzaar 100-25 Tablet] 1 tab PO DAILY 03/06/24 [History] Multivitamins, Thera [Multivitamin (formulary)] 1 tab PO DAILY 03/06/24 [History] Omeprazole [PriLOSEC] 20 mg PO HS 03/06/24 [History] busPIRone HCL 5 mg PO BID 03/06/24 [History] Fluticasone Propion/Salmeterol [Advair 250-50 Diskus] 1 inh INHALATION DAILY 10/23/24 [History] metFORMIN HCL 1,000 mg PO BID 10/23/24 [History] Cyclobenzaprine [Flexeril] 10 mg PO TID #21 tab 10/29/24 [Rx] Gabapentin [Neurontin] 300 mg PO TID #30 cap 10/29/24 [Rx] Sennosides/Docusate Sodium [Senna Plus 8.6-50 mg Softgel] 1 each PO DAILY #20 capsule 10/29/24 [Rx] cefaDROXiL [Duricef] 500 mg PO Q12HR 5 Days #10 cap 10/29/24 [Rx] oxyCODONE HCL/ACETAMINOPHEN [Percocet 7.5-325 mg] 1 tab PO Q6HR PRN #16 tab 10/29/24 [Rx] Follow up Appointment(s)/Referral(s): [facility] [NON-STAFF] - As Needed (Walker delivered to room, any questions please call agency.) Noel Connelly DO [Doctor of Osteopathic Medicine] - 2 Weeks Activity/Diet/Wound Care/Special Instructions: Spine Discharge and Recovery Instructions Date of Surgery: 10/24/2024 Diagnosis: 1. L4-5 GRADE 2 SPONDYLOLISTHESIS, UNSTABLE 2. L5-S1 GRADE 1 SPONDYLOLISTHESIS UNSTABLE 3. 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 LOW BACK PAIN 5. LE WEAKNESS WITH PARESTHESIA Procedure: L4-S1 MIS posterolateral interbody fusion Medications: See medication list All medication refills should be obtained through your primary care doctor or your clinic spine surgeon. Please discuss prescription refills at your follow up appointment. Do not call the hospital for medication refills. Dressing: Leave your dressing in place for a total of 5 days post operatively. Then you may remove your dressing and leave open to air. Keep the area clean and if not able to keep area clean, then cover with sterile gauze and tape. Showering: You may shower 3 days after your procedure allowing soap and water to run over incision. Do not scrub. Do not soak. Blot dry. Follow up: Please confirm a follow up appointment with your surgeon 3 weeks post operatively. Please make an appointment to follow up with your PCP in 1-2 weeks after surgery for evaluation '3 phase, 3-week plan' POST OP WEEKS 1-3 1. Lifting/carrying/pushing/pulling limited to less than 5 pounds. 2. Do not sit for longer than 15 minutes at one time. Get up and walk around. Prolonged sitting is NOT advised. If you lay down, see if you can tolerate laying down on you front (belly side) 3. Walk for periods of 15 minutes = 1 mile but no longer; do it multiple times times each day. 4. Ice your low back after activity. POST OP WEEKS 3-6 1. Lifting limited to less than 20 pounds. 2. Do not sit for longer than 30 minutes at a time. Frequently change positions. Use a sit-to stand workstation or take frequent breaks from sitting if you have returned to work. 3. Walk for 30 minutes each day. If possible, do these three or more times a day POST OP WEEKS 6+ At your 6-week appointment we will give you a physical therapy referral to focus on a core stabilization and strengthening program. You should also work on leg & buttock strengthening, hamstring & quadriceps stretching, and continue a low impact aerobic activity program such as swimming, walking, or riding a stationary bicycle. During the initial 6 weeks after your surgery, you are at the highest risk of re-injuring your spine. You should generally avoid BLT's (bending, lifting and twisting combination motions) and follow the above guidelines to reduce the chance of reinjury. You can anticipate post op appointments in our office at approximately 3 weeks and 6 weeks after your surgery. INCISION CARE: If your incision is not draining you do NOT need to cover it with a dressing. Keep your incision clean, dry and intact. In most cases, we apply skin glue, óscar or sutures to the incision at the time of surgery. This will be like a crust or have the appearance of a scab and will fall off in time on its own. The stitches or óscar need to be removed at 3 weeks post op appointment. You may begin to shower 3 days after surgery (this allows the glue to brown well). However, please avoid scrubbing the incision site or peeling off any of the skin glue. This will ensure optimal healing of your incision. Also, during this time avoid soaking the incision area in water - this includes swimming pools, hot tubs or baths. No ointments, lotions or oils on the incision until your surgeon allows. Leave óscar, sutures or glue in place. Neurological dysfunction that comes on suddenly can also be a sign of a stroke. Below some common symptoms of a stroke are listed: B - balance difficulty such as sudden onset walking or leaning to one side - NEW E - eye problem such as sudden double vision or trouble seeing on one side - NEW F - Facial weakness or numbness on one side - NEW A - Arm or leg weakness or numbness on one side - NEW S - Slurred speech or difficulty with word finding - NEW T - Time is BRAIN! Call 911 as soon as you recognize these symptoms Diet: Consume a regular diet rich in vegetables and lean protein such as chicken or fish. You should consume in a ratio of approximately 20% fats|40% carbohydrates|40%protein. Vegetables, sweet potatoes, brown rice or quinoa are examples of good carbohydrates. Chips, white bread, cookies and sweets/sugar are examples of bad carbohydrates. Limit your bad carbs, go wild with good carbs. "Life's Simple 7" Guidelines as per [place] [employer] These will help you reclaim your life after surgery and help desk assistant in your recovery, keeping in mind your restrictions. (1) Get Active. Physical activity can help people lose weight, control high blood pressure and cholesterol, feel emotionally better, and sleep better. (2) Control Cholesterol. Avoid a diet high in saturated fat, trans fat, & cholesterol. Limit whole milk & cream, ice cream, butter, egg yolks, processed meats (like sausage and hot dogs), and fatty meats. Choose healthy foods that are low in saturated fat, trans fat and cholesterol which include: Fruits and vegetables, fiber rich grain products (like whole grain pasta and brown rice), lean meat such as chicken, fish, nuts, seeds, and legumes. (3) Eat Better. Eat small portions. Shop at the grocery with a list and do not stray from it. Tips for a healthy diet include: Limit sodium intake to less than 1500mg daily, avoid prepackaged, processed, and fast foods, choose a diet rich in fruits, vegetables, and whole grain, high fiber foods, and limit saturated & cholesterol in your diet. (4) Manage Blood Pressure. If you have high blood pressure, you should have a cuff at home so that you can check your blood pressure regularly. Be sure you have a good cuff. An arm one is generally better than a wrist one. Bring the cuff to a doctor's appointment to validate that the measurements that your cuff are taking are accurate. Take your blood pressure twice daily when you are sitting down and relaxing. Record the numbers in a log and bring this log with you to your doctors' appointments. (5) Lose Weight if your BMI is above 25. A healthy BMI is between 19-25. To calculate Your BMI, you may use a Standard BMI Calculator on the NIH BMI website: <www.nhlbi.nih.gov/guidelines/obesity/BMI/bmicalc.htm>. Weigh oneself daily. If you are overweight, set a goal to lose weight. A pound a week loss if needed is a good target. (6) Reduce Blood Sugar. Limit foods and liquids with "added sugars." (Added sugars include sucrose, fructose, glucose, maltose, dextrose, high fructose corn syrup, corn syrup, concentrated fruit juice and honey). (7) Stop Smoking. If you smoke, quitting smoking is one of the best things that you can do for your health. Smoking increases your risk of heart attack, stroke, and peripheral vascular disease, which is a build-up of plaque in your arteries. Please discard all the cigarettes and lighters in your house. Have a plan for what you will do when you have the urge to smoke. Direct and second- hand smoke shortens your life as well as the lives of your family, friends and others around you. For your health and the health of those around you, please consider quitting! Proper Bending Body Mechanics: Maintain a wide stance with one foot slightly in front of the other. Keep your back straight. Bend utilizing the strength in your hips and knees. Do not bend at the waist. Maintain the lifted object at your waist-level close to your body. Avoid lifting weight that causes immediately pain or pain anywhere in the body afterwards. Smoking/Nicotine If there was ever one thing that you could do to increase your overall health, decrease your risk of cardiovascular problems by about 39% the second you make the choice, it is to STOP SMOKING. Your body's most instant gratification is the second you stop smoking. We have all heard the studies, read the articles but it is true, smoking is extremely bad for your overall health, and moreover it is detrimental to your bone health. Nicotine, IN ANY FORM, kills bone cells, prevents your body from healing fractures, and significantly prolongs healing after surgery. In spine surgery specifically, it increases your risk of not healing your bones to create a fusion and increases your risk of having a revision surgery due to this up to 60%. I know it is hard. I know it feels impossible. But there are ways. Take control of your life. We are here to help you through it. And when you are ready, ask us and we can direct you to help if you desire. Use the START Plan to Quit Smoking (please visit the [employer].org website listed below for more information): S = Set a quit date. Choose a date within the next 2 weeks, so you have enough time to prepare without losing your motivation to quit. If you mainly smoke at work, quit on the weekend, so you have a few days to adjust to the change. T = Tell family, friends, and co-workers that you plan to quit. Let your friends and family in on your plan to quit smoking and tell them you need their support and encouragement to stop. Look for a quit jolanta who wants to stop smoking as well. You can help each other get through the rough times. A = Anticipate and plan for the challenges you'll face while quitting. Most people who begin smoking again do so within the first 3 months. You can help yourself make it through by preparing ahead for common challenges, such as nicotine withdrawal and cigarette cravings. R = Remove cigarettes and other tobacco products from your home, car, and work. Throw away all your cigarettes (no emergency pack!), lighters, ashtrays, and matches. Wash your clothes and freshen up anything that smells like smoke. Shampoo your car, clean your drapes and carpet, and steam your furniture. T = Talk to your doctor about getting help to quit. Your doctor can prescribe medication to help with withdrawal and suggest other alternatives. If you can't see a doctor, you can get many products over the counter at your local pharmacy or grocery store, including the nicotine patch, nicotine lozenges, and nicotine gum. Resources for Quitting Smoking: <https://www.[place].gov/documents/[facility]/Quit_Tobacco_Resources_for_patients_313 480_7.pdf> Supplementation: Take recommended dosages of Vitamin D and Calcium to help fortify your bones and help them to heal. See your health maintenance packet for dosages and recommended levels. DVT/VTE prophylaxis: You will be given compression stockings from the hospital. Wear these daily for the first two weeks after surgery. You may take them off at night. You may be prescribed a medication to help thin your blood. Take this as directed. If you are not prescribed this medication, early and frequent ambulation has been shown to be the best prophylaxis to deep vein thrombosis and sequelae related to this event. Discharge Disposition: HOME SELF-CARE
--- NOTE | 2024-10-29 11:46 | P.PN ---
Subjective Progress Note Date: 10/29/24 Principal diagnosis: 1. L4-5 GRADE 2 SPONDYLOLISTHESIS, UNSTABLE 2. L5-S1 GRADE 1 SPONDYLOLISTHESIS UNSTABLE 3. 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 LOW BACK PAIN 5. LE WEAKNESS WITH PARESTHESIA Patient was seen at bedside this morning sitting up at the edge of the bed. Patient says she is looking forward to going home later today. She says she still having some pain in the low back at this time however the pain does seem to be improving over the past couple days. She says she has gotten up with therapy and has been urinating on her own and has had bowel movements as well. Patient was fitted yesterday for brace. Patient states she does note improvement in some symptoms since surgery was performed. She does note less numbness in the lower extremities. Patient denies any other orthopedic complaints at this time. Objective - Vital Signs Vital signs: Vital Signs Temp 97.9 F 10/29/24 07:13 Pulse 71 10/29/24 07:13 Resp 16 10/29/24 07:13 BP 116/64 10/29/24 07:13 Pulse Ox 94 L 10/29/24 07:13 FiO2 Intake & Output 10/28/24 10/29/24 10/29/24 18:59 06:59 18:59 Intake Total 1580 2160 Output Total 500 Balance 1080 2160 Intake: Oral 1580 2160 Output: Urine 500 Other: Voiding Method Toilet # Voids 2 5 # Bowel Movements 1 - Exam Inspection: Dressing present over lumbar spine with some spotting. Dressing changed at bedside this morning. Negative for any active drainage. Negative for any significant ecchymosis/erythema. Positive for some mild swelling diffusely throughout the lumbar spine near incisions. Jonathan appear to be well aligned and intact. Sensation: Equal, symmetric, bilat intact throughout the upper and lower extr emities on exam. Palpation: Moderate tenderness to patient diffusely throughout the lumbar spine incisions on the exam. Nontender to palpation throughout rest of exam. Range of motion: Patient does have limited range of motion the bilateral lower extremities on exam secondary referred stiffness and pain to the low back. She is able to flex and extend bilateral knees while resting in bed. Patient does have good range of motion in dorsi and plantarflexion of the ankles bilaterally. Full range of motion throughout bilateral upper extremities on exam. Motor: 5/5 in all major motor groups in bilateral upper extremities and left lower extremity exam. 4/5 in all major motor groups in right lower extremity on exam. Neurovascular: DP pulses palpable bilaterally. Cap refill under 3 seconds in digits of upper extremities. Radial pulse intact, 2+ bilaterally. Special test: Negative Marce bilaterally. Negative clonus bilaterally. Negative Lizzette bilaterally. - Labs CBC & Chem 7: 10/29/24 04:34 10/29/24 04:34 Labs: Abnormal Lab Results - Last 24 Hours (Table) 10/28/24 10/28/24 10/29/24 Range/Units 11:42 16:40 04:34 RBC 2.89 L (4.10-5.20) X 10*6/uL Hgb 7.2 L (12.0-15.0) g/dL Hct 24.4 L (37.2-46.3) % MCH 24.9 L (27.0-32.0) pg MCHC 29.5 L (32.0-37.0) g/dL RDW 15.3 H (11.5-14.5) % Potassium (3.5-5.5) mmol/L Creatinine (0.6-1.5) mg/dL BUN/Creatinine Ratio (12.00-20.00) Ratio Glucose (70-110) mg/dL POC Glucose (mg/dL) 135 H 132 H (70-110) mg/dL Calcium (8.7-10.3) mg/dL 10/29/24 10/29/24 Range/Units 04:34 06:35 RBC (4.10-5.20) X 10*6/uL Hgb (12.0-15.0) g/dL Hct (37.2-46.3) % MCH (27.0-32.0) pg MCHC (32.0-37.0) g/dL RDW (11.5-14.5) % Potassium 3.4 L (3.5-5.5) mmol/L Creatinine 0.5 L (0.6-1.5) mg/dL BUN/Creatinine Ratio 25.80 H (12.00-20.00) Ratio Glucose 130 H (70-110) mg/dL POC Glucose (mg/dL) 125 H (70-110) mg/dL Calcium 8.4 L (8.7-10.3) mg/dL Assessment and Plan Assessment: 1. L4-5 GRADE 2 SPONDYLOLISTHESIS, UNSTABLE 2. L5-S1 GRADE 1 SPONDYLOLISTHESIS UNSTABLE 3. 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 LOW BACK PAIN 5. LE WEAKNESS WITH PARESTHESIA Postop day 5 status post L4-S1 MIS posterolateral interbody fusion Plan: 1. L4-5 GRADE 2 SPONDYLOLISTHESIS, UNSTABLE; L5-S1 GRADE 1 SPONDYLOLISTHESIS UNSTABLE; LUMBAR AND LUMBOSACRAL SPONDYLOSIS WITH STENOSIS AND RADICULOPATHY; LOW BACK PAIN; LE WEAKNESS WITH PARESTHESIA - L4-S1 MIS posterolateral interbody fusion surgery performed 10/24/2024. Patient stable at bedside this morning with dressing in place over the lumbar spine. Incision appears to be healing well. New dressing placed over incision. weightbearing as tolerated with walker as needed. PT/OT on. Discharge home today with home care. 2. Prescient medical management 3. Pain management -Percocet; [place]; gabapentin; Flexeril 4. DVT prophylaxis -mechanical 5. GI prophylaxis -senna; MiraLAX 6. PT/OT -weightbearing as tolerated with walker 7. Encourage incentive spirometer use 8. Discharge planning -discharge home today with home care Time with Patient: Less than 30
--- NOTE | 2024-10-29 14:17 | P.PN ---
Subjective Progress Note Date: 10/29/24 This is a pleasant 64-year-old female who was recently admitted under orthopedic services for significant spondylolisthesis with lumbar and lumbosacral spondylosis with radiculopathy and is status post L4-S1 posterior lateral interbody fusion. Patient reports she continues to have significant pain and discomfort although slightly improved from yesterday. Patient is significantly weak and would like to go to [facility] currently awaiting updated PT/OT therapy notes and case management following awaiting insurance authorization. Patient is afebrile with no reports of chest pain or shortness of breath and patient has been tolerating diet. 10/28/2024 Patient is seen in follow-up today and continues to report lower back pain. Patient awaiting a walker and will provide a prescription on discharge. Patient is afebrile with no reports of chest pain or shortness of breath. Patient has been tolerating diet with no reported nausea or vomiting. Patient per nursing staff staying overnight for continued pain management with probable discharge in 24 hours. Plan is for returning home with home care. Patient is medically stable once cleared by orthopedics 10/29/2024 Patient is seen in follow-up this morning with no acute overnight issues. Continues with some pain management issues although reports better controlled today. Patient has been discharged by orthopedics recommending outpatient foll ow-up. Patient has received a walker prescription and will be discharged today. Patient is afebrile with no reports of chest pain or shortness of breath. Patient has been instructed to resume appropriate home medications and outpatient follow-up with orthopedics as well as primary care provider. Patient is medically stable once cleared by orthopedics. Review of systems: Constitutional: No reports of fatigue, fever, or chills Cardiovascular: No reports of chest pain or palpitations Respiratory: No reports of shortness of breath or cough GI: No reports of nausea, no reports of vomiting, no diarrhea : No reports of dysuria or retention Neurovascular: reports of generalized weakness, continued back pain All medications have been reviewed PHYSICAL EXAMINATION: GENERAL: The patient is alert and oriented x4, Well developed, well nourished. Morbidly obese HEENT: Pupils are round and equally reacting to light. EOMI. no scleral icterus. No conjunctival pallor. Normocephalic, atraumatic. No pharyngeal erythema. No thyromegaly. CARDIOVASCULAR: S1 and S2 muffled PULMONARY: diminished breath sounds bilaterally with no wheezing or rhonchi noted. ABDOMEN: soft. Nontender on exam. obese. non-distended, normoactive bowel sounds. No palpable organomegaly. MUSCULOSKELETAL: No joint swelling or deformity. EXTREMITIES: No cyanosis, clubbing, or pedal edema. NEUROLOGICAL: Gross neurological examination did not reveal any focal deficits. Diffuse weakness SKIN: No rashes. Assessment: Status post L4-S1 posterior lateral interbody fusion Diabetes mellitus, type II Elevated WBC, likely reactive Asthma, not in exacerbation History of hypertension Morbid obesity with a BMI of 47.3 GI prophylaxis DVT prophylaxis Full code Plan: Recommend to continue with current medications and management per orthopedic services. Encourage incentive spirometer use at least 10 times every hour while awake including taking home and continuing to use Home medications reviewed and resumed as appropriate Patient is medically stable once cleared by orthopedics for discharge. Patient has a walker prescription for discharge. Patient encouraged to follow-up with primary care provider on discharge at scheduled appointment Thank you kindly for this consultation. We will continue to follow during hospitalization. The impression and plan of care has been dictated as a scribe by Yamileth Mack, nurse practitioner as directed. Dr. Kehinde MD I have performed a history and examination and MDM of this patient, discussed the same with the dictator, and agree with the dictator's assessment and plan as written ,documented as a scribe. Based on total visit time, I have performed more than 50% of the visit. Any additional findings or plans will be noted. Objective - Vital Signs Vital signs: Vital Signs Temp 97.9 F 10/29/24 07:13 Pulse 71 10/29/24 07:13 Resp 16 10/29/24 07:13 BP 116/64 10/29/24 07:13 Pulse Ox 94 L 10/29/24 07:13 FiO2 Intake & Output 10/28/24 10/29/24 10/29/24 18:59 06:59 18:59 Intake Total 1580 2160 Output Total 500 Balance 1080 2160 Intake: Oral 1580 2160 Output: Urine 500 Other: Voiding Method Toilet # Voids 2 5 # Bowel Movements 1 - Labs CBC & Chem 7: 10/29/24 04:34 10/29/24 04:34 Labs: Abnormal Lab Results - Last 24 Hours (Table) 10/28/24 10/28/2410/28/24 Range/Units 02:44 02:44 11:42 WBC 11.98 H (4.50-10.00) X 10*3/uL RBC 3.00 L (4.10-5.20) X 10*6/uL Hgb 7.7 L (12.0-15.0) g/dL Hct 25.6 L (37.2-46.3) % MCH 25.7 L (27.0-32.0) pg MCHC 30.1 L (32.0-37.0) g/dL RDW 15.5 H (11.5-14.5) % Neutrophils # 8.75 H (1.80-7.70) X 10*3/uL Monocytes # 1.04 H (0.20-1.00) X 10*3/uL Eosinophils # 0.36 H (0.04-0.35) X 10*3/uL Sodium 133 L (135-145) mmol/L Chloride 93 L (96-109) mmol/L Anion Gap 13.10 H (4.00-12.00) mmol/L BUN/Creatinine Ratio 29.50 H (12.00-20.00) Ratio Glucose 122 H (70-110) mg/dL POC Glucose (mg/dL) 135 H (70-110) mg/dL Calcium 8.5 L (8.7-10.3) mg/dL 10/28/24 10/29/24 Range/Units 16:40 06:35 WBC (4.50-10.00) X 10*3/uL RBC (4.10-5.20) X 10*6/uL Hgb (12.0-15.0) g/dL Hct (37.2-46.3) % MCH (27.0-32.0) pg MCHC (32.0-37.0) g/dL RDW (11.5-14.5) % Neutrophils # (1.80-7.70) X 10*3/uL Monocytes # (0.20-1.00) X 10*3/uL Eosinophils # (0.04-0.35) X 10*3/uL Sodium (135-145) mmol/L Chloride (96-109) mmol/L Anion Gap (4.00-12.00) mmol/L BUN/Creatinine Ratio (12.00-20.00) Ratio Glucose (70-110) mg/dL POC Glucose (mg/dL) 132 H 125 H (70-110) mg/dL Calcium (8.7-10.3) mg/dL
== END 2024-10-29 14:02 | disposition home or self-care (01) | DRG 448 ==
LOC: OR 07:52 → 4SSUR 07:53 → OR 07:53 → 4SSUR 13:12
PROVIDERS: ADMIT Orthopaedic Surgery; ATTEND Orthopaedic Surgery
PROC: 0SG30AJ Fusion of Lumbosacral Joint with Interbody Fusion Device, Posterior Approach, Anterior Column, Open Approach (ICD-10-PCS; 2024-10-24)
PROC: 00NY0ZZ Release Lumbar Spinal Cord, Open Approach (ICD-10-PCS; 2024-10-24)
PROC: 01NB0ZZ Release Lumbar Nerve, Open Approach (ICD-10-PCS; 2024-10-24)
PROC: 0ST40ZZ Resection of Lumbosacral Disc, Open Approach (ICD-10-PCS; 2024-10-24)
PROC: 0QS00ZZ Reposition Lumbar Vertebra, Open Approach (ICD-10-PCS; 2024-10-24)
PROC: 0SG00AJ Fusion of Lumbar Vertebral Joint with Interbody Fusion Device, Posterior Approach, Anterior Column, Open Approach (ICD-10-PCS; principal; 2024-10-24 09:45)
DX: M43.16 Spondylolisthesis, lumbar region (principal); M48.061 Spinal stenosis, lumbar region without neurogenic claudication; M47.27 Other spondylosis with radiculopathy, lumbosacral region; M43.17 Spondylolisthesis, lumbosacral region; R32 Unspecified urinary incontinence; M40.47 Postural lordosis, lumbosacral region; I47.10 Supraventricular tachycardia, unspecified; M24.29 Disorder of ligament, other specified site; E11.9 Type 2 diabetes mellitus without complications; J45.909 Unspecified asthma, uncomplicated; M79.7 Fibromyalgia; L40.9 Psoriasis, unspecified; Z68.42 Body mass index [BMI] 45.0-49.9, adult; I10 Essential (primary) hypertension; E66.01 Morbid (severe) obesity due to excess calories; D72.829 Elevated white blood cell count, unspecified; Z88.5 Allergy status to narcotic agent; Z79.899 Other long term (current) drug therapy; Z88.2 Allergy status to sulfonamides; Z88.1 Allergy status to other antibiotic agents; Z91.041 Radiographic dye allergy status; Z91.040 Latex allergy status
CPT/HCPCS: 72020; 72131; 80048; 83036; 85025; 85610; 94640

== ENCOUNTER → 2025-06-01 | Outpatient (CLI) | payer MEDICAID ==
--- NOTE | 2025-06-01 09:01 | MM ---
Reason for Exam: Screening (asymptomatic). Last mammogram was performed 1 year(s) and 1 month(s) ago. Patient History: Menarche at age 17. First Full-Term at age 31. Late child-bearing (after 31). Postmenopausal. Patient has history of breast feeding. Progesterone for 5 years from age 27 until age 32. Unspecified Hormone for 4 years from age 27 until age 31. Risk Values: Shelly 5 year model risk: 2.0%. NCI Lifetime model risk: 8.4%. Prior Study Comparison: 08/23/2020 Bilateral Screening Mammogram, [facility]. 04/30/2023 Bilateral MG 3D screening mammo w/cad, [facility]. 05/03/2024 Bilateral MG 3D screening mammo w/cad, [facility]. Tissue Density: There are scattered areas of fibroglandular density. Findings: Analyzed By CAD. There is no suspicious group of microcalcifications or new suspicious mass in either breast. Overall Assessment: Negative, BI-RAD 1 Management: Screening Mammogram of both breasts in 1 year. Patient should continue monthly self-breast exams. A clinical breast exam by your physician is recommended on an annual basis. This exam should not preclude additional follow-up of suspicious palpable abnormalities. Note on Shelly scores and lifetime risk: 1. A Shelly score greater than 3% is considered moderate risk. If this is the case, consider specialist referral to assess eligibility for a risk reducing agent. 2. If overall lifetime risk for the development of breast cancer is 20% or higher, the patient may qualify for future screening with alternating mammogram and breast MRI. [facility], , 06/01/2025 8:58 AM. Electronically signed and approved by: Poornima Gore M.D. Radiologist
== END | disposition home or self-care (01) ==
LOC: RADMAMWWP 07:35
PROVIDERS: ATTEND Family Medicine
DX: Z12.31 Encounter for screening mammogram for malignant neoplasm of breast (principal); R92.323 Mammographic fibroglandular density, bilateral breasts; Z78.0 Asymptomatic menopausal state
CPT/HCPCS: 77063; 77067